=== PATIENT | female | born 1965 | race African-American/Black ===

== ENCOUNTER 2019-07-20 05:31 | Inpatient (IN) | payer MEDICAID, OTHER ==
[2019-07-20] VITALS (20 sets, daily range): BP systolic 133–192; BP diastolic 74–118
[~2019-07-20] VITALS: Ht 162.6 cm; Wt 113.5 kg
[2019-07-20] MEDS ORDERED: ONDANSETRON HCL 4MG/2ML INJ IV STA (05:41)
[2019-07-20] MEDS ORDERED: MORPHINE SULFATE 4 MG/ML CPJ (NOT FOR IM USE) IV STA (05:41)
[2019-07-20] MEDS ORDERED: PROPOFOL 10MG/ML 100ML 100 ML IV ONE (05:45)
[2019-07-20] MEDS ORDERED: KETAMINE HCL 50 MG/ML 10ML IV ONE (05:45)
[2019-07-20] MEDS ORDERED: VECURONIUM BROMIDE 10 MG/VIAL IV ONE (05:45)
[2019-07-20] MEDS ORDERED: KETAMINE HCL 50 MG/ML 10ML ONE (05:53)
[2019-07-20] MEDS ORDERED: FAMOTIDINE 20MG/2ML VIAL IV ONE (06:45)
[2019-07-20] MEDS ORDERED: DEXAMETHASONE 10 MG/ML VIAL IV ONE (06:45)
[2019-07-20] MEDS ORDERED: DIPHENHYDRAMINE 50MG/ML VIAL IV ONE (06:45)
[2019-07-20 07:03] LABS: CHLORIDE 110 mEq/L (98-107)
[2019-07-20 07:06] LABS: BASOPHILS % 1.6 % (0.0-2.0); EOSINOPHILS % 3.4 % (0.0-5.0); HEMATOCRIT. 31.2 % (36.0-48.0); HEMOGLOBIN. 9.9 g/dL (12.0-16.0); LYMPHOCYTES % 13.2 % (20.0-50.0); MEAN CORPUSCULAR HEMOGLOBIN 23.8 pg (28.0-32.0); MEAN CORPUSCULAR VOLUME 75.3 fL (81.0-99.0); MEAN PLATELET VOLUME 8.9 fl (7.4-10.4); MONOCYTES % 8.5 % (2.0-8.0); NEUTROPHILS % 73.3 % (40.0-76.0); PLATELET 556 x1000/uL (130-400); RED BLOOD CELL COUNT 4.15 mill/uL (4.2-5.4); RED CELL DISTRIBUTION WIDTH 15.9 % (11.6-14.6)
[2019-07-20] MEDS ORDERED: PIPERACILLIN/TAZ 3.375G PREMIX 50 ML IV SCH ×2 (10:00→12:05)
[2019-07-20] MEDS ORDERED: LORAZEPAM 2MG/ML CPJ IV PRN (10:00)
[2019-07-20] MEDS ORDERED: IPRATROPIUM/ALBUTEROL 0.5-3(2.5)MG/3ML NEB HHN PRN (10:00)
[2019-07-20 10:45] LABS: BG BASE EXCESS -4.1 mmol/L (-2.0-2.0); BG CARBOXYHEMOGLOBIN 0.2 % (0.5-1.5); BG DEOXYHEMOGLOBIN 0.5 % (0.0-5.0); BG FRACTION INSPIRED OXYGEN 100; BG HCO3 ACT 20.9 mmol/L (22.0-26.0); BG METHEMOGLOBIN 0.3 % (0.0-1.5); BG OXYGEN SATURATION 99.5 % (92.0-98.5); BG PCO2 37.5 mmHg (35.0-45.0); BG PH 7.363 (7.350-7.450); BG PO2 325.3 mmHg (75.0-100.0); BG SAMPLE SITE RIGHT RADIAL; BG TIDAL VOLUME(mL) 500 mL; BG TOTAL HEMOGLOBIN 8.9 g/dL (12.0-18.0); BG VENT MODE VENT - A/C; BG VENT RATE 16 set
[2019-07-20] MEDS ORDERED: PROPOFOL 10MG/ML 100ML 100 ML IV NR (11:48)
[2019-07-20] MEDS ORDERED: DEXT 5%/0.45% NACL KCL 20MEQ/L 1,000 ML IV SCH ×2 (12:15→21:00)
[2019-07-20] MEDS ORDERED: FAMOTIDINE 20MG/2ML VIAL IV SCH (14:00)
[2019-07-20] MEDS: AMLODIPINE 10MG TABLET PO SCH (14:14)
[2019-07-20] MEDS: ENOXAPARIN 40MG/0.4ML SYR SUBCUT SCH (14:15)
[2019-07-20] MEDS: CLONIDINE 0.1MG TABLET PO PRN (15:01)
[2019-07-20 17:06] LABS: BG BASE EXCESS -1.5 mmol/L (-2.0-2.0); BG CARBOXYHEMOGLOBIN 0.2 % (0.5-1.5); BG DEOXYHEMOGLOBIN 1.2 % (0.0-5.0); BG FRACTION INSPIRED OXYGEN 60; BG HCO3 ACT 23.6 mmol/L (22.0-26.0); BG METHEMOGLOBIN 0.2 % (0.0-1.5); BG OXYGEN SATURATION 98.8 % (92.0-98.5); BG OXYHEMOGLOBIN 98.4 % (94.0-97.0); BG PCO2 41.4 mmHg (35.0-45.0); BG PH 7.374 (7.350-7.450); BG PO2 167.2 mmHg (75.0-100.0); BG SAMPLE SITE RIGHT RADIAL; BG TIDAL VOLUME(mL) 500 mL; BG TOTAL HEMOGLOBIN 9.2 g/dL (12.0-18.0); BG VENT MODE VENT - A/C; BG VENT RATE 14 set
[2019-07-20] MEDS ORDERED: DEXT 5%/0.45% NACL 1000ML 1,000 ML IV SCH (17:15)
[2019-07-20] MEDS: PIPERACILLIN/TAZOBACTAM 2.25 G in DEXTROSE 5% WATER 50 ML IV SCH (17:24)
[2019-07-20] MEDS ORDERED: DEXTROSE 50% WATER 50ML SYRINGE IV PRN (17:45)
[2019-07-20] MEDS: BLOOD SUGAR DIAGNOSTIC STRIP TEST SCH ×2 (17:54→20:35)
[2019-07-20] MEDS: METHYLPREDNISOLONE SOD SUCC 40 MG/ML VIAL IV SCH (17:55)
[2019-07-20] MEDS: INSULIN LISPRO 100 UNITS/ML SUBCUT SCH ×2 (18:10→21:00)
[2019-07-20] MEDS: PROPOFOL 10MG/ML 100ML 100 ML IV PRN (19:10)
[2019-07-20 20:14] LABS: CLARITY URINE CLEAR (CLEAR); COLOR URINE YELLOW (YELLOW); KETONES URINE NEGATIVE (NEGATIVE); LEUKOCYTE ESTERASE URINE NEGATIVE (NEGATIVE); NITRITE URINE NEGATIVE (NEGATIVE); OCCULT BLOOD URINE 2+ (NEGATIVE); PH URINE 5.5 (4.5-8.0); PROTEIN URINE 4+ (NEGATIVE); SPECIFIC GRAVITY URINE 1.019 (1.005-1.030); UROBILINOGEN URINE 0.2 E.U./dL (0.2-1.0)
[2019-07-20] MEDS: IPRATROPIUM/ALBUTEROL 0.5-3(2.5)MG/3ML NEB HHN SCH (20:29)
[2019-07-20] MEDS: METOPROLOL TARTRATE 50MG TABLET PO SCH (20:35)
[2019-07-21] VITALS (42 sets, daily range): BP systolic 130–186; BP diastolic 58–159
[2019-07-21] MEDS: IPRATROPIUM/ALBUTEROL 0.5-3(2.5)MG/3ML NEB HHN SCH ×6 (00:10→20:20)
[2019-07-21] MEDS: METHYLPREDNISOLONE SOD SUCC 40 MG/ML VIAL IV SCH ×3 (02:02→16:31)
[2019-07-21] MEDS: PIPERACILLIN/TAZOBACTAM 2.25 G in DEXTROSE 5% WATER 50 ML IV SCH ×3 (02:03→16:31)
[2019-07-21] MEDS: PROPOFOL 10MG/ML 100ML 100 ML IV PRN ×2 (02:17→08:40)
[2019-07-21 06:15] LABS: HEMATOCRIT. 28.6 % (36.0-48.0); HEMOGLOBIN. 8.8 g/dL (12.0-16.0); MEAN CORPUSCULAR HEMOGLOBIN 23.3 pg (28.0-32.0); MEAN CORPUSCULAR VOLUME 75.7 fL (81.0-99.0); MEAN PLATELET VOLUME 9.4 fl (7.4-10.4); PLATELET 411 x1000/uL (130-400); RED BLOOD CELL COUNT 3.77 mill/uL (4.2-5.4); RED CELL DISTRIBUTION WIDTH 15.7 % (11.6-14.6)
[2019-07-21 07:51] LABS: BG BASE EXCESS -2.5 mmol/L (-2.0-2.0); BG CARBOXYHEMOGLOBIN 0.6 % (0.5-1.5); BG DEOXYHEMOGLOBIN 1.1 % (0.0-5.0); BG FRACTION INSPIRED OXYGEN 60; BG HCO3 ACT 22.6 mmol/L (22.0-26.0); BG METHEMOGLOBIN 0.3 % (0.0-1.5); BG OXYGEN SATURATION 98.9 % (92.0-98.5); BG PCO2 40.1 mmHg (35.0-45.0); BG PEEP (cmH2O) 0 cmH2O; BG PH 7.368 (7.350-7.450); BG PO2 151.6 mmHg (75.0-100.0); BG SAMPLE SITE RIGHT RADIAL; BG TIDAL VOLUME(mL) 500 mL; BG TOTAL HEMOGLOBIN 7.3 g/dL (12.0-18.0); BG VENT MODE VENT - A/C; BG VENT RATE 14 set
[2019-07-21] MEDS: BLOOD SUGAR DIAGNOSTIC STRIP TEST SCH ×4 (08:24→21:47)
[2019-07-21] MEDS: AMLODIPINE 10MG TABLET PO SCH (08:25)
[2019-07-21] MEDS: FAMOTIDINE 20MG/2ML VIAL IV SCH (08:25)
[2019-07-21] MEDS: METOPROLOL TARTRATE 50MG TABLET PO SCH ×2 (08:26→22:51)
[2019-07-21] MEDS: ENOXAPARIN 40MG/0.4ML SYR SUBCUT SCH (08:27)
[2019-07-21] MEDS: INSULIN LISPRO 100 UNITS/ML SUBCUT SCH ×4 (08:37→21:00)
[2019-07-21 10:55] LABS: PLATELET ESTIMATE SLIGHTLY INCREASED
[2019-07-21 11:02] LABS: INR 1.1; PARTIAL THROMBOPLASTIN TIME 29.4 sec (23.4-31.0)
[2019-07-21 11:21] LABS: PHOSPHORUS 4.7 mg/dL (2.5-4.9)
[2019-07-21] MEDS ORDERED: LIDOCAINE HCL 1% 20ML VIAL (Pyxis) INJ ONE (12:32)
[2019-07-21] MEDS ORDERED: SODIUM BICARBONATE 4% (2.4MEQ) 5ML VIAL IV ONE (12:32)
[2019-07-21] MEDS ORDERED: RACEPINEPHRINE 2.25% 0.5ML NEB VIAL HHN PRN (16:15)
[2019-07-21] MEDS ORDERED: RACEPINEPHRINE 2.25% 0.5ML NEB VIAL HHN SCH (16:30)
[2019-07-21] MEDS ORDERED: DEXTROSE 50% WATER 50ML SYRINGE IV PRN (19:15)
[2019-07-22] VITALS (36 sets, daily range): BP systolic 138–199; BP diastolic 76–121
[2019-07-22] MEDS: IPRATROPIUM/ALBUTEROL 0.5-3(2.5)MG/3ML NEB HHN SCH ×7 (00:20→22:00)
[2019-07-22] MEDS: PIPERACILLIN/TAZOBACTAM 2.25 G in DEXTROSE 5% WATER 50 ML IV SCH ×3 (01:05→17:24)
[2019-07-22] MEDS: METHYLPREDNISOLONE SOD SUCC 40 MG/ML VIAL IV SCH ×3 (01:05→17:21)
[2019-07-22] MEDS: CLONIDINE 0.1MG TABLET PO PRN ×3 (01:06→17:42)
[2019-07-22 06:09] LABS: HEMATOCRIT 29.2 % (36.0-48.0); HEMOGLOBIN 9.1 g/dL (12.0-16.0); MEAN CORPUSCULAR HEMOGLOBIN 23.5 pg (28.0-32.0); MEAN CORPUSCULAR VOLUME 75.5 fL (81.0-99.0); PLATELET 524 x1000/uL (130-400); RED BLOOD CELL COUNT 3.87 mill/uL (4.2-5.4); RED CELL DISTRIBUTION WIDTH 15.8 % (11.6-14.6)
[2019-07-22 06:55] LABS: CHLORIDE 112 mEq/L (98-107)
[2019-07-22] MEDS: BLOOD SUGAR DIAGNOSTIC STRIP TEST SCH ×4 (07:37→21:03)
[2019-07-22] MEDS: METOPROLOL TARTRATE 50MG TABLET PO SCH ×2 (07:51→21:03)
[2019-07-22] MEDS: FOLIC ACID/VITAMIN B COMP W-C TABLET PO SCH (07:51)
[2019-07-22] MEDS: AMLODIPINE 10MG TABLET PO SCH (07:51)
[2019-07-22] MEDS: FAMOTIDINE 20MG/2ML VIAL IV SCH (07:52)
[2019-07-22] MEDS: INSULIN LISPRO 100 UNITS/ML SUBCUT SCH ×4 (07:53→21:00)
[2019-07-22 08:06] LABS: BG BASE EXCESS -2.1 mmol/L (-2.0-2.0); BG CARBOXYHEMOGLOBIN 0.8 % (0.5-1.5); BG DEOXYHEMOGLOBIN 1.1 % (0.0-5.0); BG FRACTION INSPIRED OXYGEN 28; BG HCO3 ACT 21.6 mmol/L (22.0-26.0); BG METHEMOGLOBIN 0.3 % (0.0-1.5); BG OXYGEN SATURATION 98.9 % (92.0-98.5); BG OXYHEMOGLOBIN 97.8 % (94.0-97.0); BG PCO2 32.7 mmHg (35.0-45.0); BG PH 7.437 (7.350-7.450); BG PO2 153.3 mmHg (75.0-100.0); BG SAMPLE SITE RIGHT RADIAL; BG TOTAL HEMOGLOBIN 9.5 g/dL (12.0-18.0); BG VENT MODE NASAL CANNULA
[2019-07-22] MEDS: ENOXAPARIN 40MG/0.4ML SYR SUBCUT SCH (09:00)
[2019-07-22 15:14] LABS: HEPATITIS B SURFACE AB < 3.1 mIU/mL
[2019-07-22 15:25] LABS: HEPATITIS B SURFACE ANTIGEN NEGATIVE
[2019-07-22] MEDS ORDERED: FUROSEMIDE 100MG/10ML VIAL IVP NR (16:00)
[2019-07-22] MEDS: FUROSEMIDE 100MG/10ML VIAL IVP SCH (16:19)
[2019-07-22 17:11] LABS: BG BASE EXCESS -3.9 mmol/L (-2.0-2.0); BG CARBOXYHEMOGLOBIN 0.4 % (0.5-1.5); BG DEOXYHEMOGLOBIN 10.7 % (0.0-5.0); BG FRACTION INSPIRED OXYGEN 21; BG HCO3 ACT 21.1 mmol/L (22.0-26.0); BG METHEMOGLOBIN 0.3 % (0.0-1.5); BG OXYGEN SATURATION 89.2 % (92.0-98.5); BG OXYHEMOGLOBIN 88.6 % (94.0-97.0); BG PCO2 37.7 mmHg (35.0-45.0); BG PH 7.365 (7.350-7.450); BG PO2 60.1 mmHg (75.0-100.0); BG SAMPLE SITE LEFT RADIAL; BG TOTAL HEMOGLOBIN 9.4 g/dL (12.0-18.0); BG VENT MODE ROOM AIR
[2019-07-22] MEDS: CLONIDINE 0.1MG TABLET PO SCH ×2 (18:57→21:03)
[2019-07-22] MEDS: INSULIN GLARGINE UD 100 UNITS/ML SYR SUBCUT SCH (21:00)
[2019-07-22] MEDS ORDERED: METOPROLOL TARTRATE 50MG TABLET PO SCH (21:25)
[2019-07-22] MEDS ORDERED: CLONIDINE 0.1MG TABLET PO SCH (21:30)
[2019-07-23] VITALS (55 sets, daily range): BP systolic 113–204; BP diastolic 59–117
[2019-07-23] MEDS ORDERED: AMLODIPINE 5MG TABLET PO SCH
[2019-07-23] MEDS: PIPERACILLIN/TAZOBACTAM 2.25 G in DEXTROSE 5% WATER 50 ML IV SCH ×3 (01:14→17:53)
[2019-07-23] MEDS: METHYLPREDNISOLONE SOD SUCC 40 MG/ML VIAL IV SCH ×3 (01:14→20:11)
[2019-07-23] MEDS: NICARDIPINE 50 MG in SODIUM CHLORIDE 0.9% 250 ML IV PRN ×2 (01:15→23:22)
[2019-07-23] MEDS: IPRATROPIUM/ALBUTEROL 0.5-3(2.5)MG/3ML NEB HHN SCH ×5 (01:30→21:24)
[2019-07-23] MEDS: CLONIDINE 0.1MG TABLET PO SCH ×3 (06:00→20:11)
[2019-07-23 06:24] LABS: HEMOGLOBIN. 8.5 g/dL (12.0-16.0); MEAN CORPUSCULAR HEMOGLOBIN 23.6 pg (28.0-32.0); MEAN CORPUSCULAR VOLUME 75.3 fL (81.0-99.0); PLATELET 417 x1000/uL (130-400); RED BLOOD CELL COUNT 3.58 mill/uL (4.2-5.4); RED CELL DISTRIBUTION WIDTH 15.6 % (11.6-14.6)
[2019-07-23] MEDS: FUROSEMIDE 100MG/10ML VIAL IVP SCH ×2 (06:38→16:59)
[2019-07-23 07:29] LABS: CHLORIDE 106 mEq/L (98-107)
[2019-07-23 07:37] LABS: PHOSPHORUS 4.1 mg/dL (2.5-4.9)
[2019-07-23] MEDS: ENOXAPARIN 40MG/0.4ML SYR SUBCUT SCH (07:48)
[2019-07-23] MEDS: BLOOD SUGAR DIAGNOSTIC STRIP TEST SCH ×4 (07:55→20:15)
[2019-07-23] MEDS: FOLIC ACID/VITAMIN B COMP W-C TABLET PO SCH (08:31)
[2019-07-23] MEDS: FAMOTIDINE 20MG/2ML VIAL IV SCH (08:31)
[2019-07-23] MEDS: METOPROLOL TARTRATE 50MG TABLET PO SCH ×2 (08:32→20:10)
[2019-07-23] MEDS: INSULIN LISPRO 100 UNITS/ML SUBCUT SCH ×4 (08:32→20:13)
[2019-07-23] MEDS: AMLODIPINE 10MG TABLET PO SCH (08:33)
[2019-07-23 08:49] LABS: PLATELET ESTIMATE SLIGHTLY INCREASED
[2019-07-23] MEDS: INSULIN GLARGINE UD 100 UNITS/ML SYR SUBCUT SCH ×2 (09:44→21:02)
[2019-07-23] MEDS ORDERED: CLONIDINE 0.1MG TABLET PO NR (14:45)
[2019-07-23 14:57] LABS: HEPATITIS B SURFACE ANTIGEN NEGATIVE
[2019-07-23 15:26] LABS: HEPATITIS A AB IGM NEGATIVE (NEGATIVE)
[2019-07-23] MEDS ORDERED: INSULIN GLARGINE UD 100 UNITS/ML SYR SUBCUT NR (16:00)
[2019-07-23] MEDS: EPOETIN ALFA 10000UNITS/ML VIAL SUBCUT SCH (20:11)
[2019-07-24] VITALS (24 sets, daily range): BP systolic 123–189; BP diastolic 42–106
[2019-07-24] MEDS: IPRATROPIUM/ALBUTEROL 0.5-3(2.5)MG/3ML NEB HHN SCH ×5 (00:28→21:32)
[2019-07-24] MEDS: PIPERACILLIN/TAZOBACTAM 2.25 G in DEXTROSE 5% WATER 50 ML IV SCH ×3 (02:48→23:24)
[2019-07-24 05:54] LABS: HEMATOCRIT. 27.7 % (36.0-48.0); HEMOGLOBIN. 8.6 g/dL (12.0-16.0); MEAN CORPUSCULAR HEMOGLOBIN 23.4 pg (28.0-32.0); MEAN CORPUSCULAR VOLUME 75.4 fL (81.0-99.0); MEAN PLATELET VOLUME 9.2 fl (7.4-10.4); PLATELET 430 x1000/uL (130-400); RED BLOOD CELL COUNT 3.68 mill/uL (4.2-5.4)
[2019-07-24] MEDS: NICARDIPINE 50 MG in SODIUM CHLORIDE 0.9% 250 ML IV PRN (06:14)
[2019-07-24 06:25] LABS: PHOSPHORUS 3.5 mg/dL (2.5-4.9)
[2019-07-24] MEDS: FUROSEMIDE 100MG/10ML VIAL IVP SCH (07:15)
[2019-07-24 08:15] LABS: PLATELET ESTIMATE INCREASED
[2019-07-24] MEDS: BLOOD SUGAR DIAGNOSTIC STRIP TEST SCH ×4 (08:17→21:00)
[2019-07-24] MEDS: FAMOTIDINE 20MG/2ML VIAL IV SCH (08:18)
[2019-07-24] MEDS: METHYLPREDNISOLONE SOD SUCC 40 MG/ML VIAL IV SCH (08:18)
[2019-07-24] MEDS: CLONIDINE 0.1MG TABLET PO SCH ×2 (08:19→12:42)
[2019-07-24] MEDS: AMLODIPINE 10MG TABLET PO SCH (08:19)
[2019-07-24] MEDS: FOLIC ACID/VITAMIN B COMP W-C TABLET PO SCH (08:19)
[2019-07-24] MEDS: METOPROLOL TARTRATE 50MG TABLET PO SCH ×2 (08:19→22:05)
[2019-07-24] MEDS: INSULIN LISPRO 100 UNITS/ML SUBCUT SCH ×4 (08:20→22:16)
[2019-07-24] MEDS: ENOXAPARIN 40MG/0.4ML SYR SUBCUT SCH (09:00)
[2019-07-24] MEDS ORDERED: METOPROLOL TARTRATE 25MG TABLET PO NR (10:30)
[2019-07-24] MEDS: INSULIN GLARGINE UD 100 UNITS/ML SYR SUBCUT SCH ×2 (10:33→22:19)
[2019-07-24] MEDS: CLONIDINE 0.2MG TABLET PO SCH ×2 (13:54→23:35)
[2019-07-24] MEDS: NIFEDIPINE XL 60MG TAB PO SCH (21:17)
[2019-07-25] VITALS: BP 193/114
[2019-07-25] MEDS ORDERED: NITROPRUSSIDE 50 MG in SODIUM CHLORIDE 0.9% 248 ML IV PRN (00:15)
[2019-07-25] MEDS: IPRATROPIUM/ALBUTEROL 0.5-3(2.5)MG/3ML NEB HHN SCH ×6 (01:19→19:45)
[2019-07-25] MEDS: NITROGLYCERIN OINT 1GM/INCH UDPKT TD SCH ×4 (02:43→18:27)
[2019-07-25 04:00] VITALS: BP 181/100
[2019-07-25] MEDS: CLONIDINE 0.2MG TABLET PO SCH ×3 (06:07→22:23)
[2019-07-25] MEDS: PIPERACILLIN/TAZOBACTAM 2.25 G in DEXTROSE 5% WATER 50 ML IV SCH ×2 (06:07→12:02)
[2019-07-25 06:22] LABS: PHOSPHORUS 3.6 mg/dL (2.5-4.9)
[2019-07-25 06:26] LABS: BASOPHILS % 0.5 % (0.0-2.0); EOSINOPHILS % 2.4 % (0.0-5.0); HEMATOCRIT. 27.5 % (36.0-48.0); HEMOGLOBIN. 8.7 g/dL (12.0-16.0); LYMPHOCYTES % 16.9 % (20.0-50.0); MEAN CORPUSCULAR HEMOGLOBIN 23.5 pg (28.0-32.0); MEAN CORPUSCULAR VOLUME 74.1 fL (81.0-99.0); MONOCYTES % 11.8 % (2.0-8.0); NEUTROPHILS % 68.4 % (40.0-76.0); PLATELET 417 x1000/uL (130-400); RED BLOOD CELL COUNT 3.71 mill/uL (4.2-5.4); RED CELL DISTRIBUTION WIDTH 15.8 % (11.6-14.6)
[2019-07-25] MEDS: FUROSEMIDE 40MG/4ML VIAL IVP SCH ×2 (07:15→18:27)
[2019-07-25] MEDS: BLOOD SUGAR DIAGNOSTIC STRIP TEST SCH ×4 (07:20→20:15)
[2019-07-25] MEDS: INSULIN LISPRO 100 UNITS/ML SUBCUT SCH ×4 (07:50→20:52)
[2019-07-25 08:00] VITALS: BP 121/68
[2019-07-25] MEDS: FOLIC ACID/VITAMIN B COMP W-C TABLET PO SCH (09:27)
[2019-07-25] MEDS: ENOXAPARIN 40MG/0.4ML SYR SUBCUT SCH (09:27)
[2019-07-25] MEDS: FAMOTIDINE 20MG/2ML VIAL IV SCH (09:27)
[2019-07-25] MEDS: LOSARTAN POTASSIUM 25 MG TABLET PO SCH (09:29)
[2019-07-25] MEDS: NIFEDIPINE XL 60MG TAB PO SCH ×2 (09:29→20:49)
[2019-07-25] MEDS: METOPROLOL TARTRATE 50MG TABLET PO SCH ×2 (09:29→20:50)
[2019-07-25 12:00] VITALS: BP 126/73
[2019-07-25] MEDS: INSULIN GLARGINE UD 100 UNITS/ML SYR SUBCUT SCH ×2 (12:15→22:17)
[2019-07-25 13:10] LABS: HIV SCREEN 4G Non Reactive (Non Reactive)
[2019-07-25 20:00] VITALS: BP 182/99
[2019-07-26] VITALS: BP 193/109
[2019-07-26] MEDS: NITROGLYCERIN OINT 1GM/INCH UDPKT TD SCH ×4 (00:01→17:19)
[2019-07-26] MEDS: IPRATROPIUM/ALBUTEROL 0.5-3(2.5)MG/3ML NEB HHN SCH ×6 (00:11→21:27)
[2019-07-26 04:00] VITALS: BP 188/105
[2019-07-26] MEDS: CLONIDINE 0.2MG TABLET PO SCH ×3 (05:26→22:35)
[2019-07-26 06:31] LABS: BASOPHILS % 0.9 % (0.0-2.0); EOSINOPHILS % 7.5 % (0.0-5.0); HEMATOCRIT. 29.7 % (36.0-48.0); HEMOGLOBIN. 9.4 g/dL (12.0-16.0); LYMPHOCYTES % 15.6 % (20.0-50.0); MEAN CORPUSCULAR HEMOGLOBIN 23.6 pg (28.0-32.0); MEAN CORPUSCULAR VOLUME 74.3 fL (81.0-99.0); MEAN PLATELET VOLUME 8.9 fl (7.4-10.4); MONOCYTES % 13.7 % (2.0-8.0); NEUTROPHILS % 62.3 % (40.0-76.0); PLATELET 465 x1000/uL (130-400); RED BLOOD CELL COUNT 4.01 mill/uL (4.2-5.4); RED CELL DISTRIBUTION WIDTH 15.8 % (11.6-14.6)
[2019-07-26] MEDS: INSULIN LISPRO 100 UNITS/ML SUBCUT SCH ×4 (06:34→21:11)
[2019-07-26] MEDS: BLOOD SUGAR DIAGNOSTIC STRIP TEST SCH ×4 (06:34→21:11)
[2019-07-26] MEDS: FUROSEMIDE 40MG/4ML VIAL IVP SCH ×2 (06:36→17:18)
[2019-07-26 08:00] VITALS: BP 132/78
[2019-07-26] MEDS: FOLIC ACID/VITAMIN B COMP W-C TABLET PO SCH (08:07)
[2019-07-26] MEDS: LOSARTAN POTASSIUM 25 MG TABLET PO SCH (08:07)
[2019-07-26] MEDS: FAMOTIDINE 20MG TABLET PO SCH (08:07)
[2019-07-26] MEDS: NIFEDIPINE XL 60MG TAB PO SCH ×2 (08:07→20:52)
[2019-07-26] MEDS: METOPROLOL TARTRATE 50MG TABLET PO SCH ×2 (08:08→20:53)
[2019-07-26] MEDS: ENOXAPARIN 40MG/0.4ML SYR SUBCUT SCH (08:09)
[2019-07-26] MEDS: INSULIN GLARGINE UD 100 UNITS/ML SYR SUBCUT SCH ×2 (10:17→22:35)
[2019-07-26 12:00] VITALS: BP 145/84
[2019-07-26] MEDS: CLONIDINE 0.1MG TABLET PO PRN ×2 (14:16→14:18)
[2019-07-26 16:00] VITALS: BP 150/77
[2019-07-26] MEDS: METOLAZONE 2.5MG TABLET PO SCH (17:18)
[2019-07-26 18:13] LABS: HEMATOCRIT 28.4 % (36.0-48.0); HEMOGLOBIN 9.1 g/dL (12.0-16.0); MEAN CORPUSCULAR HEMOGLOBIN 23.7 pg (28.0-32.0); MEAN CORPUSCULAR VOLUME 74.2 fL (81.0-99.0); PLATELET 455 x1000/uL (130-400); RED BLOOD CELL COUNT 3.83 mill/uL (4.2-5.4); RED CELL DISTRIBUTION WIDTH 15.8 % (11.6-14.6)
[2019-07-26 18:17] LABS: CHLORIDE 105 mEq/L (98-107)
[2019-07-26 20:00] VITALS: BP 146/85
[2019-07-26] MEDS: EPOETIN ALFA 10000UNITS/ML VIAL SUBCUT SCH (20:54)
[2019-07-27] VITALS (16 sets, daily range): BP systolic 126–194; BP diastolic 71–106
[2019-07-27] MEDS: IPRATROPIUM/ALBUTEROL 0.5-3(2.5)MG/3ML NEB HHN SCH ×4 (00:15→16:23)
[2019-07-27] MEDS: NITROGLYCERIN OINT 1GM/INCH UDPKT TD SCH ×4 (00:25→17:19)
[2019-07-27] MEDS: CLONIDINE 0.1MG TABLET PO PRN (04:24)
[2019-07-27] MEDS: CLONIDINE 0.2MG TABLET PO SCH ×2 (05:38→13:12)
[2019-07-27] MEDS: FUROSEMIDE 40MG/4ML VIAL IVP SCH ×2 (06:33→17:19)
[2019-07-27] MEDS: BLOOD SUGAR DIAGNOSTIC STRIP TEST SCH ×3 (06:43→17:19)
[2019-07-27] MEDS: INSULIN LISPRO 100 UNITS/ML SUBCUT SCH ×3 (06:43→17:28)
[2019-07-27] MEDS ORDERED: CEFAZOLIN 1000MG PREMIX 50 ML IV SCH (07:00)
[2019-07-27] MEDS ORDERED: CEFAZOLIN 1000MG PREMIX 50 ML IV ONE (07:33)
[2019-07-27] MEDS ORDERED: FENTANYL CITRATE/PF 50MCG/ML 2ML VIAL ONE (07:33)
[2019-07-27] MEDS ORDERED: LIDOCAINE HCL 1% 20ML VIAL (Pyxis) INJ ONE (07:42)
[2019-07-27] MEDS ORDERED: SODIUM BICARBONATE 4% (2.4MEQ) 5ML VIAL IV ONE (07:42)
[2019-07-27] MEDS ORDERED: FENTANYL CITRATE/PF 50MCG/ML 2ML VIAL IV ONE (08:30)
[2019-07-27] MEDS: ENOXAPARIN 40MG/0.4ML SYR SUBCUT SCH (09:00)
[2019-07-27] MEDS: FOLIC ACID/VITAMIN B COMP W-C TABLET PO SCH (09:19)
[2019-07-27] MEDS: NIFEDIPINE XL 60MG TAB PO SCH (09:20)
[2019-07-27] MEDS: LOSARTAN POTASSIUM 25 MG TABLET PO SCH (09:20)
[2019-07-27] MEDS: METOPROLOL TARTRATE 50MG TABLET PO SCH (09:20)
[2019-07-27] MEDS: FAMOTIDINE 20MG TABLET PO SCH (09:20)
[2019-07-27] MEDS: METOLAZONE 2.5MG TABLET PO SCH ×2 (09:20→17:18)
[2019-07-27] MEDS: ACETAMINOPHEN 325MG TABLET PO PRN ×2 (10:15→15:15)
[2019-07-27] MEDS: INSULIN GLARGINE UD 100 UNITS/ML SYR SUBCUT SCH (11:33)
[2019-07-27] MEDS ORDERED: LOSA25TA3 MT (12:21)
[2019-07-27] MEDS ORDERED: HYDR-4001 MT (12:21)
[2019-07-27] MEDS ORDERED: FOLI1TAB63 MT (12:21)
[2019-07-27] MEDS ORDERED: NIFE20CA PO (12:21)
[2019-07-27] MEDS ORDERED: FURO-151 MT (12:21)
[2019-07-27] MEDS ORDERED: FAMO-135 PO (12:21)
[2019-07-27] MEDS ORDERED: METO2.5T14 PO (12:21)
[2019-07-27] MEDS ORDERED: METO-539 MT (12:21)
[2019-07-27] MEDS ORDERED: CLON0.2T MT (12:21)
[2019-07-27] MEDS ORDERED: FURO80TA87 MT (15:50)
== END 2019-07-27 18:14 | disposition home or self-care (01) | DRG 133 ==
LOC: ER 05:31 → CVICU 06:11 → EDBEDREQSVC 06:13 → EDBEDREQTM 06:13 → EDBEDREQ 06:13 → ENRESERV 11:58 → 6EST 07-24 14:48
PROVIDERS: ADMIT Ophthalmology; ATTEND Ophthalmology
PROC: 5A1945Z Respiratory Ventilation, 24-96 Consecutive Hours (ICD-10-PCS; principal; 2019-07-20)
PROC: 0BH17EZ Insertion of Endotracheal Airway into Trachea, Via Natural or Artificial Opening (ICD-10-PCS; 2019-07-20)
PROC: 02HV33Z Insertion of Infusion Device into Superior Vena Cava, Percutaneous Approach (ICD-10-PCS; 2019-07-21)
PROC: 5A1D70Z Performance of Urinary Filtration, Intermittent, Less than 6 Hours Per Day (ICD-10-PCS; 2019-07-21)
PROC: 02H633Z Insertion of Infusion Device into Right Atrium, Percutaneous Approach (ICD-10-PCS; 2019-07-22)
PROC: B548ZZA Ultrasonography of Superior Vena Cava, Guidance (ICD-10-PCS; 2019-07-22)
PROC: 02PYX3Z Removal of Infusion Device from Great Vessel, External Approach (ICD-10-PCS; 2019-07-22)
PROC: 5A1D70Z Performance of Urinary Filtration, Intermittent, Less than 6 Hours Per Day (ICD-10-PCS; 2019-07-22)
PROC: 5A1D70Z Performance of Urinary Filtration, Intermittent, Less than 6 Hours Per Day (ICD-10-PCS; 2019-07-23)
PROC: 5A1D70Z Performance of Urinary Filtration, Intermittent, Less than 6 Hours Per Day (ICD-10-PCS; 2019-07-25)
PROC: 0JH63XZ Insertion of Tunneled Vascular Access Device into Chest Subcutaneous Tissue and Fascia, Percutaneous Approach (ICD-10-PCS; 2019-07-27)
PROC: 02HV33Z Insertion of Infusion Device into Superior Vena Cava, Percutaneous Approach (ICD-10-PCS; 2019-07-27)
PROC: B5181ZA Fluoroscopy of Superior Vena Cava using Low Osmolar Contrast, Guidance (ICD-10-PCS; 2019-07-27)
DX: J96.01 Acute respiratory failure with hypoxia (principal); J18.9 Pneumonia, unspecified organism; I12.0 Hypertensive chronic kidney disease with stage 5 chronic kidney disease or end stage renal disease; E11.22 Type 2 diabetes mellitus with diabetic chronic kidney disease; N18.6 End stage renal disease; E66.01 Morbid (severe) obesity due to excess calories; T78.3XXA Angioneurotic edema, initial encounter; E86.9 Volume depletion, unspecified; E78.5 Hyperlipidemia, unspecified; E87.5 Hyperkalemia; E87.70 Fluid overload, unspecified; I16.0 Hypertensive urgency; D47.3 Essential (hemorrhagic) thrombocythemia; Z20.828 Contact with and (suspected) exposure to other viral communicable diseases; D64.9 Anemia, unspecified; T46.5X5A Adverse effect of other antihypertensive drugs, initial encounter; Z79.4 Long term (current) use of insulin; Z79.899 Other long term (current) drug therapy; Z87.441 Personal history of nephrotic syndrome; Z88.8 Allergy status to other drugs, medicaments and biological substances; Z91.19 Patient's noncompliance with other medical treatment and regimen; Z68.42 Body mass index [BMI] 45.0-49.9, adult; Y92.89 Other specified places as the place of occurrence of the external cause
CPT/HCPCS: 36415; 36558; 36589; 36600; 70490; 71045; 71250; 76770; 76937; 77001; 80048; 80053; 80061; 81003; 82375; 82570; 82805; 82962; 83036; 83735; 83880; 84100; 84156; 84478; 84484; 85025; 85027; 86705; 86706; 86709; 86803; 87070; 87340; 87389; 87635; 93005; 96374; 97116; 97162; 99152; 99153; 99291; C1750; C1752; C1769; J0690; J0885; J1100; J1200; J1642; J1650; J1815; J1940; J2270; J2405; J2543; J2704; J2920; J3010; J3490; J7050; J7060; G0500

== ENCOUNTER 2019-09-11 23:29 | Emergency (ER) | payer MEDICAID ==
[~2019-09-11] VITALS: Ht 165.1 cm; Wt 95.0 kg
[~2019-09-11 23:29] MED LIST: CLON0.2T MT; FAMO-135 PO; FOLI1TAB63 MT; FURO80TA87 MT; HYDR-4001 MT; LOSA25TA3 MT; METO-539 MT; METO2.5T14 PO; NIFE20CA PO
[2019-09-12] MEDS ORDERED: HYDROCODONE/ACETAMINOPHEN 5/325MG TABLET PO ONE (00:45)
[2019-09-12 01:09] LABS: BASOPHILS % 0.6 % (0.0-2.0); EOSINOPHILS % 3.4 % (0.0-5.0); HEMATOCRIT. 39.4 % (36.0-48.0); HEMOGLOBIN. 12.7 g/dL (12.0-16.0); LYMPHOCYTES % 15.6 % (20.0-50.0); MEAN CORPUSCULAR HEMOGLOBIN 25.4 pg (28.0-32.0); MEAN CORPUSCULAR VOLUME 78.6 fL (81.0-99.0); MEAN PLATELET VOLUME 9.6 fl (7.4-10.4); MONOCYTES % 10.8 % (2.0-8.0); NEUTROPHILS % 69.6 % (40.0-76.0); PLATELET 293 x1000/uL (130-400); RED BLOOD CELL COUNT 5.01 mill/uL (4.2-5.4); RED CELL DISTRIBUTION WIDTH 22.9 % (11.6-14.6)
[2019-09-12 01:15] LABS: CHLORIDE 101 mEq/L (98-107)
[2019-09-12 01:17] LABS: INR 1.1
[2019-09-12 01:44] LABS: CLARITY URINE CLEAR (CLEAR); COLOR URINE YELLOW (YELLOW); KETONES URINE NEGATIVE (NEGATIVE); LEUKOCYTE ESTERASE URINE NEGATIVE (NEGATIVE); NITRITE URINE NEGATIVE (NEGATIVE); OCCULT BLOOD URINE 1+ (NEGATIVE); PH URINE 6.5 (4.5-8.0); PROTEIN URINE 4+ (NEGATIVE); SPECIFIC GRAVITY URINE 1.025 (1.005-1.030); UROBILINOGEN URINE 0.2 E.U./dL (0.2-1.0)
[2019-09-12] MEDS ORDERED: INSULIN REGULAR (HUMULIN R) 300UNITS/3ML SUBCUT NR (02:00)
[2019-09-12] MEDS ORDERED: TRAMADOL 50MG TABLET PO ONE (03:15)
[2019-09-12 04:01] LABS: PLATELET ESTIMATE NORMAL
[2019-09-12 09:11] VITALS: BP 135/72
== END 2019-09-12 09:12 | disposition home or self-care (01) ==
LOC: ER 23:29
DX: R60.9 Edema, unspecified (principal); E11.65 Type 2 diabetes mellitus with hyperglycemia; E11.22 Type 2 diabetes mellitus with diabetic chronic kidney disease; I12.0 Hypertensive chronic kidney disease with stage 5 chronic kidney disease or end stage renal disease; N18.6 End stage renal disease; Z79.899 Other long term (current) drug therapy; Z98.890 Other specified postprocedural states
CPT/HCPCS: 36415; 71045; 80053; 81003; 81025; 84484; 85025; 85610; 93005; 93970; 96372; 99285; J1815

== ENCOUNTER 2019-10-01 02:14 | Inpatient (IN) | payer MEDICAID ==
[~2019-10-01] VITALS: Ht 165.1 cm; Wt 83.5 kg
[2019-10-01] MEDS ORDERED: LABETALOL 5MG/ML SYR 20 MG/4 ML SYRINGE IV ONE (03:00)
[2019-10-01 03:35] LABS: INR 1.1; PARTIAL THROMBOPLASTIN TIME 25.8 sec (23.4-31.0); PROTHROMBIN TIME 11.4 sec (9.6-11.0)
[2019-10-01 03:56] LABS: EOSINOPHILS % 3.9 % (0.0-5.0); HEMATOCRIT. 44.2 % (36.0-48.0); HEMOGLOBIN. 14.1 g/dL (12.0-16.0); LYMPHOCYTES % 27.4 % (20.0-50.0); MEAN CORPUSCULAR HEMOGLOBIN 24.7 pg (28.0-32.0); MEAN CORPUSCULAR VOLUME 77.4 fL (81.0-99.0); MEAN PLATELET VOLUME 10.6 fl (7.4-10.4); MONOCYTES % 13.6 % (2.0-8.0); NEUTROPHILS % 52.1 % (40.0-76.0); PLATELET 219 x1000/uL (130-400); RED BLOOD CELL COUNT 5.72 mill/uL (4.2-5.4); RED CELL DISTRIBUTION WIDTH 20.7 % (11.6-14.6)
[2019-10-01 04:21] LABS: BG BASE EXCESS -0.4 mmol/L (-2.0-2.0); BG CARBOXYHEMOGLOBIN 0.8 % (0.5-1.5); BG DEOXYHEMOGLOBIN 3.6 % (0.0-5.0); BG FRACTION INSPIRED OXYGEN 21; BG HCO3 ACT 24.4 mmol/L (22.0-26.0); BG METHEMOGLOBIN 0.3 % (0.0-1.5); BG OXYGEN SATURATION 96.4 % (92.0-98.5); BG OXYHEMOGLOBIN 95.3 % (94.0-97.0); BG PCO2 40.8 mmHg (35.0-45.0); BG PH 7.395 (7.350-7.450); BG PO2 82.7 mmHg (75.0-100.0); BG SAMPLE SITE RIGHT RADIAL; BG TOTAL HEMOGLOBIN 13.4 g/dL (12.0-18.0); BG VENT MODE ROOM AIR
[2019-10-01 05:38] LABS: CHLORIDE 101 mEq/L (98-107)
[2019-10-01 05:46] LABS: ETHANOL BLOOD < 10 mg/dL
[2019-10-01 06:04] LABS: *BARBITURATES SCREEN URINE NEGATIVE (NEGATIVE)
[2019-10-01 06:05] LABS: *BENZODIAZEPINES SCREEN URINE NEGATIVE (NEGATIVE); *COCAINE SCREEN URINE NEGATIVE (NEGATIVE); METHADONE URINE SCREEN NEGATIVE (NEGATIVE); OPIATES URINE SCREEN NEGATIVE (NEGATIVE); PHENCYCLIDINE URINE SCREEN NEGATIVE (NEGATIVE)
[2019-10-01 06:06] LABS: CANNABINOID URINE SCREEN NEGATIVE (NEGATIVE)
[2019-10-01 06:07] LABS: *AMPHETAMINES SCREEN URINE NEGATIVE (NEGATIVE)
[2019-10-01] MEDS ORDERED: DEXTROSE 50% WATER 50ML SYRINGE IV PRN (11:00)
[2019-10-01] MEDS ORDERED: GUAIFENESIN 200MG/10ML SUGAR FREE UDC PO PRN (11:15)
[2019-10-01] MEDS ORDERED: ONDANSETRON HCL 4MG/2ML INJ IV PRN (11:15)
[2019-10-01] MEDS ORDERED: MORPHINE SULFATE 2 MG/ML CPJ (NOT FOR IM USE) IV PRN (11:15)
[2019-10-01] MEDS ORDERED: IPRATROPIUM/ALBUTEROL 0.5-3(2.5)MG/3ML NEB NEB PRN (11:15)
[2019-10-01] MEDS ORDERED: DIPHENHYDRAMINE 50MG/ML VIAL IV PRN (11:15)
[2019-10-01] MEDS ORDERED: ACETAMINOPHEN 325MG TABLET PO PRN (11:15)
[2019-10-01] MEDS ORDERED: MAGNESIUM/ALUMINUM HYDROXIDE/SIMETHICONE 30ML UDC PO PRN (11:15)
[2019-10-01] MEDS ORDERED: LORAZEPAM 0.5MG TABLET PO PRN (11:15)
[2019-10-01] MEDS ORDERED: DOCUSATE SODIUM 100MG CAPSULE PO PRN (11:15)
[2019-10-01] MEDS ORDERED: HYDROCODONE/ACETAMINOPHEN 5/325MG TABLET PO PRN (11:15)
[2019-10-01] MEDS ORDERED: ACETAMINOPHEN 650MG SUPP PR PRN (11:15)
[2019-10-01] MEDS ORDERED: METOLAZONE 2.5MG TABLET PO SCH (12:00)
[2019-10-01] MEDS ORDERED: INSULIN GLARGINE UD 100 UNITS/ML SYR SUBCUT NR (12:00)
[2019-10-01 13:00] VITALS: BP 150/82
[2019-10-01] MEDS: BLOOD SUGAR DIAGNOSTIC STRIP TEST SCH ×3 (13:52→21:45)
[2019-10-01] MEDS: INSULIN LISPRO (HIGH DOSE) 100 UNITS/ML SUBCUT SCH ×3 (13:54→21:44)
[2019-10-01] MEDS: LOSARTAN POTASSIUM 50 MG TABLET PO SCH (14:15)
[2019-10-01] MEDS: NIFEDIPINE XL 90MG TAB PO SCH (14:15)
[2019-10-01 15:44] LABS: CLARITY URINE CLEAR (CLEAR); COLOR URINE YELLOW (YELLOW); KETONES URINE NEGATIVE (NEGATIVE); LEUKOCYTE ESTERASE URINE NEGATIVE (NEGATIVE); NITRITE URINE NEGATIVE (NEGATIVE); OCCULT BLOOD URINE 1+ (NEGATIVE); PROTEIN URINE 4+ (NEGATIVE); SPECIFIC GRAVITY URINE 1.025 (1.005-1.030); UROBILINOGEN URINE 0.2 E.U./dL (0.2-1.0)
[2019-10-01 16:00] VITALS: BP 164/97
[2019-10-01] MEDS: CEFTRIAXONE 1 G PREMIX 50 ML IV SCH (17:41)
[2019-10-01 17:45] LABS: CREATINE KINASE MB FRACTION 4.6 ng/mL (0.5-3.6)
[2019-10-01] MEDS: CLONIDINE 0.1MG TABLET PO PRN (18:19)
[2019-10-01 20:00] VITALS: BP 177/105
[2019-10-01 21:00] VITALS: BP 145/68
[2019-10-01] MEDS ORDERED: AMLODIPINE 5MG TABLET PO SCH (21:00)
[2019-10-01] MEDS: METOPROLOL TARTRATE 25MG TABLET PO SCH (21:42)
[2019-10-01] MEDS: HEPARIN 5000 UNITS/ML VIAL SUBCUT SCH (21:43)
[2019-10-01] MEDS: MINOXIDIL 2.5MG TABLET PO SCH (21:43)
[2019-10-01] MEDS: INSULIN GLARGINE UD 100 UNITS/ML SYR SUBCUT SCH (21:44)
[2019-10-01] MEDS ORDERED: INSULIN GLARGINE UD 100 UNITS/ML SYR SUBCUT SCH (22:00)
[2019-10-02 00:30] VITALS: BP 165/107
[2019-10-02 00:30] LABS: CREATINE KINASE MB FRACTION 3.8 ng/mL (0.5-3.6)
[2019-10-02] MEDS: CLONIDINE 0.1MG TABLET PO PRN (01:02)
[2019-10-02 04:00] VITALS: BP 147/87
[2019-10-02] MEDS: INSULIN LISPRO (HIGH DOSE) 100 UNITS/ML SUBCUT SCH ×4 (07:27→21:49)
[2019-10-02] MEDS: BLOOD SUGAR DIAGNOSTIC STRIP TEST SCH ×4 (07:27→21:38)
[2019-10-02 08:00] VITALS: BP 171/99
[2019-10-02] MEDS ORDERED: ALTEPLASE 2MG/VIAL ITC NR (08:15)
[2019-10-02] MEDS: LOSARTAN POTASSIUM 50 MG TABLET PO SCH (10:15)
[2019-10-02] MEDS: ASPIRIN 81MG EC TABLET PO SCH (10:15)
[2019-10-02] MEDS: METOPROLOL TARTRATE 25MG TABLET PO SCH ×2 (10:15→21:38)
[2019-10-02] MEDS: HEPARIN 5000 UNITS/ML VIAL SUBCUT SCH ×2 (10:16→21:38)
[2019-10-02] MEDS: MINOXIDIL 2.5MG TABLET PO SCH ×2 (10:18→21:38)
[2019-10-02] MEDS: NIFEDIPINE XL 90MG TAB PO SCH (10:18)
[2019-10-02] MEDS: INSULIN GLARGINE UD 100 UNITS/ML SYR SUBCUT SCH ×2 (10:28→22:28)
[2019-10-02 11:35] LABS: BASOPHILS % 0.9 % (0.0-2.0); EOSINOPHILS % 4.2 % (0.0-5.0); HEMATOCRIT. 37.2 % (36.0-48.0); HEMOGLOBIN. 12.1 g/dL (12.0-16.0); LYMPHOCYTES % 21.5 % (20.0-50.0); MEAN CORPUSCULAR HEMOGLOBIN 25.2 pg (28.0-32.0); MEAN CORPUSCULAR VOLUME 77.7 fL (81.0-99.0); MEAN PLATELET VOLUME 9.4 fl (7.4-10.4); MONOCYTES % 12.7 % (2.0-8.0); NEUTROPHILS % 60.7 % (40.0-76.0); PLATELET 183 x1000/uL (130-400); RED BLOOD CELL COUNT 4.78 mill/uL (4.2-5.4); RED CELL DISTRIBUTION WIDTH 20.3 % (11.6-14.6)
[2019-10-02 11:47] LABS: CHLORIDE 106 mEq/L (98-107)
[2019-10-02 11:53] LABS: PHOSPHORUS 2.9 mg/dL (2.5-4.9)
[2019-10-02 11:54] LABS: LDL CHOLESTEROL 156 mg/dL (5-100)
[2019-10-02 11:55] LABS: HDL CHOLESTEROL 70 mg/dL (40-59)
[2019-10-02 11:56] LABS: T4 FREE 0.87 ng/dL (0.76-1.46)
[2019-10-02 12:00] VITALS: BP 136/76
[2019-10-02 16:00] VITALS: BP 121/72
[2019-10-02] MEDS: CEFTRIAXONE 1 G PREMIX 50 ML IV SCH (17:47)
[2019-10-02 20:00] VITALS: BP 134/80
[2019-10-02] MEDS ORDERED: ATORVASTATIN CALCIUM 20MG TABLET PO SCH (21:00)
[2019-10-03] VITALS: BP 135/85
[2019-10-03 04:00] VITALS: BP 113/74
[2019-10-03 06:02] LABS: PHOSPHORUS 3.2 mg/dL (2.5-4.9)
[2019-10-03 06:17] LABS: BASOPHILS % 2.9 % (0.0-2.0); EOSINOPHILS % 5.1 % (0.0-5.0); HEMATOCRIT. 38.5 % (36.0-48.0); HEMOGLOBIN. 12.3 g/dL (12.0-16.0); MEAN CORPUSCULAR HEMOGLOBIN 24.8 pg (28.0-32.0); MEAN CORPUSCULAR VOLUME 78.1 fL (81.0-99.0); MEAN PLATELET VOLUME 10.1 fl (7.4-10.4); MONOCYTES % 10.2 % (2.0-8.0); NEUTROPHILS % 56.8 % (40.0-76.0); PLATELET 239 x1000/uL (130-400); RED BLOOD CELL COUNT 4.93 mill/uL (4.2-5.4); RED CELL DISTRIBUTION WIDTH 20.4 % (11.6-14.6)
[2019-10-03] MEDS: BLOOD SUGAR DIAGNOSTIC STRIP TEST SCH ×4 (06:58→21:24)
[2019-10-03] MEDS: INSULIN LISPRO (HIGH DOSE) 100 UNITS/ML SUBCUT SCH ×4 (07:50→21:39)
[2019-10-03 08:00] VITALS: BP 119/67
[2019-10-03] MEDS: ASPIRIN 81MG EC TABLET PO SCH (08:46)
[2019-10-03] MEDS: HEPARIN 5000 UNITS/ML VIAL SUBCUT SCH ×2 (08:47→21:37)
[2019-10-03] MEDS: NIFEDIPINE XL 90MG TAB PO SCH (08:51)
[2019-10-03] MEDS: MINOXIDIL 2.5MG TABLET PO SCH ×2 (08:51→21:37)
[2019-10-03] MEDS: LOSARTAN POTASSIUM 50 MG TABLET PO SCH (08:51)
[2019-10-03] MEDS: METOPROLOL TARTRATE 25MG TABLET PO SCH ×2 (08:51→21:37)
[2019-10-03] MEDS: INSULIN GLARGINE UD 100 UNITS/ML SYR SUBCUT SCH ×2 (10:07→22:32)
[2019-10-03 12:00] VITALS: BP 122/73
[2019-10-03] MEDS: EZETIMIBE 10MG TABLET PO SCH (13:56)
[2019-10-03 16:00] VITALS: BP 124/73
[2019-10-03] MEDS: CEFTRIAXONE 1 G PREMIX 50 ML IV SCH (18:00)
[2019-10-03 20:00] VITALS: BP 131/75
[2019-10-04] VITALS: BP 143/77
[2019-10-04 04:00] VITALS: BP 123/81
[2019-10-04 06:04] LABS: BASOPHILS % 2.6 % (0.0-2.0); HEMATOCRIT. 37.3 % (36.0-48.0); HEMOGLOBIN. 12.2 g/dL (12.0-16.0); LYMPHOCYTES % 21.9 % (20.0-50.0); MEAN CORPUSCULAR HEMOGLOBIN 25.3 pg (28.0-32.0); MEAN PLATELET VOLUME 9.6 fl (7.4-10.4); MONOCYTES % 8.9 % (2.0-8.0); NEUTROPHILS % 62.6 % (40.0-76.0); PLATELET 268 x1000/uL (130-400); RED BLOOD CELL COUNT 4.85 mill/uL (4.2-5.4); RED CELL DISTRIBUTION WIDTH 20.2 % (11.6-14.6)
[2019-10-04 06:07] LABS: PHOSPHORUS 2.8 mg/dL (2.5-4.9)
[2019-10-04] MEDS: BLOOD SUGAR DIAGNOSTIC STRIP TEST SCH ×4 (07:12→21:28)
[2019-10-04 08:00] VITALS: BP 148/89
[2019-10-04] MEDS: ASPIRIN 81MG EC TABLET PO SCH (09:08)
[2019-10-04] MEDS: LOSARTAN POTASSIUM 50 MG TABLET PO SCH (09:08)
[2019-10-04] MEDS: EZETIMIBE 10MG TABLET PO SCH (09:08)
[2019-10-04] MEDS: NIFEDIPINE XL 90MG TAB PO SCH (09:08)
[2019-10-04] MEDS: METOPROLOL TARTRATE 25MG TABLET PO SCH ×2 (09:11→21:18)
[2019-10-04] MEDS: MINOXIDIL 2.5MG TABLET PO SCH ×2 (09:11→21:18)
[2019-10-04] MEDS: INSULIN LISPRO (HIGH DOSE) 100 UNITS/ML SUBCUT SCH ×4 (09:12→21:42)
[2019-10-04] MEDS: HEPARIN 5000 UNITS/ML VIAL SUBCUT SCH ×2 (09:12→21:22)
[2019-10-04] MEDS: INSULIN GLARGINE UD 100 UNITS/ML SYR SUBCUT SCH ×2 (09:42→21:41)
[2019-10-04 12:00] VITALS: BP 134/73
[2019-10-04 16:00] VITALS: BP 116/69
[2019-10-04] MEDS: CEFTRIAXONE 1 G PREMIX 50 ML IV SCH (18:07)
[2019-10-04 20:00] VITALS: BP 145/81
[2019-10-05] VITALS (8 sets, daily range): BP systolic 118–190; BP diastolic 74–106
[2019-10-05] MEDS: CLONIDINE 0.1MG TABLET PO PRN (04:03)
[2019-10-05 05:50] LABS: PHOSPHORUS 3.7 mg/dL (2.5-4.9)
[2019-10-05] MEDS: BLOOD SUGAR DIAGNOSTIC STRIP TEST SCH ×3 (06:27→17:24)
[2019-10-05 06:47] LABS: BASOPHILS % 3.1 % (0.0-2.0); EOSINOPHILS % 4.8 % (0.0-5.0); HEMOGLOBIN. 12.7 g/dL (12.0-16.0); LYMPHOCYTES % 24.4 % (20.0-50.0); MEAN CORPUSCULAR HEMOGLOBIN 25.3 pg (28.0-32.0); MEAN CORPUSCULAR VOLUME 77.8 fL (81.0-99.0); MEAN PLATELET VOLUME 9.4 fl (7.4-10.4); MONOCYTES % 13.6 % (2.0-8.0); NEUTROPHILS % 54.1 % (40.0-76.0); PLATELET 283 x1000/uL (130-400); RED BLOOD CELL COUNT 5.02 mill/uL (4.2-5.4); RED CELL DISTRIBUTION WIDTH 20.2 % (11.6-14.6)
[2019-10-05] MEDS: INSULIN LISPRO (HIGH DOSE) 100 UNITS/ML SUBCUT SCH ×3 (07:50→17:47)
[2019-10-05] MEDS: ASPIRIN 81MG EC TABLET PO SCH (08:40)
[2019-10-05] MEDS: METOPROLOL TARTRATE 25MG TABLET PO SCH (08:41)
[2019-10-05] MEDS: MINOXIDIL 2.5MG TABLET PO SCH (08:41)
[2019-10-05] MEDS: EZETIMIBE 10MG TABLET PO SCH (08:41)
[2019-10-05] MEDS: NIFEDIPINE XL 90MG TAB PO SCH (08:41)
[2019-10-05] MEDS: LOSARTAN POTASSIUM 50 MG TABLET PO SCH (08:42)
[2019-10-05] MEDS: HEPARIN 5000 UNITS/ML VIAL SUBCUT SCH (08:42)
[2019-10-05] MEDS: INSULIN GLARGINE UD 100 UNITS/ML SYR SUBCUT SCH (10:59)
[2019-10-05] MEDS ORDERED: METOPROLOL TARTRATE 25MG TABLET PO NR (13:45)
[2019-10-05] MEDS ORDERED: METO-539 MT (14:52)
[2019-10-05] MEDS: CEFTRIAXONE 1 G PREMIX 50 ML IV SCH (17:54)
[2019-10-05] MEDS ORDERED: HEPARIN SODIUM 1,000 UNIT/1ML VIAL IV SCH (19:00)
[2019-10-05] MEDS ORDERED: METOPROLOL TARTRATE 50MG TABLET PO SCH (21:00)
[2019-10-06] MEDS ORDERED: REGADENOSON 0.4 MG/5 ML IV NR (07:15)
[2019-12-09] MEDS ORDERED: LOSA25TA3 MT (13:37)
[2019-12-09] MEDS ORDERED: CLON0.2T PO (13:37)
[2019-12-09] MEDS ORDERED: METO2.5T14 PO (13:37)
[2019-12-09] MEDS ORDERED: FURO80TA87 MT (13:37)
[2019-12-09] MEDS ORDERED: CEPH250C2 PO (13:37)
[2019-12-09] MEDS ORDERED: METO-539 MT (13:37)
[2019-12-09] MEDS ORDERED: NIFE20CA PO (13:37)
== END 2019-10-05 21:20 | DRG 470 ==
LOC: ER 02:14 → 6WST 05:14 → SUPCPDRO 11:15 → ENRESERV 11:50
PROVIDERS: ADMIT Ophthalmology; ATTEND Ophthalmology
PROC: 5A1D70Z Performance of Urinary Filtration, Intermittent, Less than 6 Hours Per Day (ICD-10-PCS; 2019-10-01)
PROC: 5A1D70Z Performance of Urinary Filtration, Intermittent, Less than 6 Hours Per Day (ICD-10-PCS; 2019-10-02)
PROC: 5A1D70Z Performance of Urinary Filtration, Intermittent, Less than 6 Hours Per Day (ICD-10-PCS; 2019-10-03)
PROC: 5A1D70Z Performance of Urinary Filtration, Intermittent, Less than 6 Hours Per Day (ICD-10-PCS; principal; 2019-10-05)
DX: I12.0 Hypertensive chronic kidney disease with stage 5 chronic kidney disease or end stage renal disease (principal); I47.2 Ventricular tachycardia; E11.21 Type 2 diabetes mellitus with diabetic nephropathy; E87.1 Hypo-osmolality and hyponatremia; L03.116 Cellulitis of left lower limb; E11.65 Type 2 diabetes mellitus with hyperglycemia; N18.6 End stage renal disease; E11.22 Type 2 diabetes mellitus with diabetic chronic kidney disease; I16.0 Hypertensive urgency; F43.20 Adjustment disorder, unspecified; E78.5 Hyperlipidemia, unspecified; D64.9 Anemia, unspecified; E66.9 Obesity, unspecified; F17.200 Nicotine dependence, unspecified, uncomplicated; I44.4 Left anterior fascicular block; F32.9 Major depressive disorder, single episode, unspecified; R26.9 Unspecified abnormalities of gait and mobility; Z91.15 Patient's noncompliance with renal dialysis; Z99.2 Dependence on renal dialysis; Z87.441 Personal history of nephrotic syndrome; Z91.14 Patient's other noncompliance with medication regimen; Z87.898 Personal history of other specified conditions; Z79.899 Other long term (current) drug therapy; Z88.8 Allergy status to other drugs, medicaments and biological substances; Z84.1 Family history of disorders of kidney and ureter; Z68.30 Body mass index [BMI] 30.0-30.9, adult; Z03.818 Encounter for observation for suspected exposure to other biological agents ruled out
CPT/HCPCS: 36415; 36600; 71045; 80048; 80053; 80061; 80305; 80320; 81003; 82375; 82550; 82553; 82805; 82962; 83735; 83880; 84100; 84439; 84443; 84484; 85025; 93005; 93970; 97162; 97530; 99285; J0696; J1644; J1815; J2997; J3490; G0480; U0003-CS

== ENCOUNTER 2020-03-04 15:39 | Inpatient (IN) | payer MEDICAID ==
[~2020-03-04] VITALS: Ht 162.6 cm; Wt 71.2 kg
[~2020-03-04 15:39] MED LIST changes: +ASPI-1160 PO; -CLON0.2T MT; +CLON0.2T PO; +CLON0.3T PO; +CLOP75TA15 PO; +FAMO-135 MT; -FURO80TA87 MT; +GLIP5TAB12 PO; -HYDR-4001 MT; +LOSA100T3 PO; -LOSA25TA3 MT; -METO-539 MT; +METO-539 PO; -METO2.5T14 PO; +MINO2.5T19 PO; +NIFE90TA60 PO; +SEVE800T8 PO; +TRAM50TA3 MT
[2020-03-04] MEDS ORDERED: ONDANSETRON HCL 4MG/2ML INJ IV STA (16:26)
[2020-03-04 17:02] LABS: HEMATOCRIT. 40.7 % (36.0-48.0); HEMOGLOBIN. 13.1 g/dL (12.0-16.0); MEAN CORPUSCULAR VOLUME 80.9 fL (81.0-99.0); MEAN PLATELET VOLUME 8.3 fl (7.4-10.4); PLATELET 366 x1000/uL (130-400); RED BLOOD CELL COUNT 5.03 mill/uL (4.2-5.4); RED CELL DISTRIBUTION WIDTH 15.3 % (11.6-14.6)
[2020-03-04 17:03] LABS: CHLORIDE 107 mEq/L (98-107)
[2020-03-04 17:08] LABS: INR 1.2; PROTHROMBIN TIME 12.3 sec (9.6-11.0)
[2020-03-04] MEDS ORDERED: HYDRALAZINE HCL 100MG TABLET PO ONE (17:15)
[2020-03-04] MEDS ORDERED: HYDRALAZINE 20MG/ML VIAL IV ONE (17:15)
[2020-03-04] MEDS ORDERED: LABETALOL HCL 100MG TABLET PO ONE (17:30)
[2020-03-04 18:05] LABS: PLATELET ESTIMATE NORMAL
[2020-03-04] MEDS ORDERED: PANTOPRAZOLE SODIUM 40 MG/VIAL IV ONE (18:15)
[2020-03-04] MEDS ORDERED: ONDANSETRON HCL 4MG/2ML INJ IV NR (21:15)
[2020-03-04] MEDS: CLONIDINE 0.3MG TABLET PO SCH (21:38)
[2020-03-04 23:20] VITALS: BP 164/81
[2020-03-05] VITALS (12 sets, daily range): BP systolic 110–190; BP diastolic 65–103
[2020-03-05] MEDS ORDERED: INSLIS SUBCUT (00:38)
[2020-03-05] MEDS ORDERED: ONDANSETRON HCL 4MG/2ML INJ IV PRN (00:45)
[2020-03-05] MEDS ORDERED: DIPHENHYDRAMINE 50MG/ML VIAL IV PRN (00:45)
[2020-03-05] MEDS ORDERED: DEXTROSE 50% WATER 50ML SYRINGE IV PRN (00:45)
[2020-03-05 07:56] LABS: HEMATOCRIT. 32.2 % (36.0-48.0); HEMOGLOBIN. 10.4 g/dL (12.0-16.0); MEAN CORPUSCULAR HEMOGLOBIN 26.1 pg (28.0-32.0); MEAN CORPUSCULAR VOLUME 80.6 fL (81.0-99.0); MEAN PLATELET VOLUME 7.8 fl (7.4-10.4); PLATELET 294 x1000/uL (130-400); RED BLOOD CELL COUNT 3.99 mill/uL (4.2-5.4); RED CELL DISTRIBUTION WIDTH 15.4 % (11.6-14.6)
[2020-03-05] MEDS: INSULIN LISPRO 100 UNITS/ML SUBCUT SCH ×4 (08:00→20:44)
[2020-03-05] MEDS: BLOOD SUGAR DIAGNOSTIC STRIP TEST SCH ×4 (08:03→20:31)
[2020-03-05] MEDS: SEVELAMER CARBONATE 800 MG TABLET PO SCH ×3 (08:27→17:20)
[2020-03-05] MEDS: METOPROLOL TARTRATE 50MG TABLET PO SCH ×2 (08:27→20:31)
[2020-03-05] MEDS: CLONIDINE 0.3MG TABLET PO SCH ×2 (08:27→21:50)
[2020-03-05] MEDS: ASPIRIN 81MG TABLET PO SCH (08:28)
[2020-03-05] MEDS: MINOXIDIL 2.5MG TABLET PO SCH ×2 (08:28→20:31)
[2020-03-05] MEDS: FAMOTIDINE 20MG TABLET PO SCH (08:28)
[2020-03-05] MEDS: FOLIC ACID/VITAMIN B COMP W-C TABLET PO SCH (08:28)
[2020-03-05] MEDS ORDERED: PANTOPRAZOLE SODIUM 40 MG/VIAL IV SCH (09:00)
[2020-03-05] MEDS: METOCLOPRAMIDE HCL 10MG/2ML VIAL IV SCH ×5 (12:00→23:38)
[2020-03-05] MEDS: LOSARTAN POTASSIUM 100 MG TABLET PO SCH (12:13)
[2020-03-05] MEDS: NIFEDIPINE XL 90MG TAB PO SCH (12:15)
[2020-03-05] MEDS: CEFEPIME 1,000 MG in DEXTROSE 5% WATER 50 ML IV SCH (12:31)
[2020-03-05 13:45] LABS: PLATELET ESTIMATE NORMAL
[2020-03-05] MEDS: ENOXAPARIN 30MG/0.3ML SYR SUBCUT SCH (17:19)
[2020-03-06] VITALS (13 sets, daily range): BP systolic 105–160; BP diastolic 62–91
[2020-03-06] MEDS: METOCLOPRAMIDE HCL 10MG/2ML VIAL IV SCH ×5 (05:13→23:48)
[2020-03-06] MEDS: INSULIN LISPRO 100 UNITS/ML SUBCUT SCH ×4 (08:00→21:00)
[2020-03-06] MEDS: SEVELAMER CARBONATE 800 MG TABLET PO SCH ×3 (08:11→17:25)
[2020-03-06] MEDS: FOLIC ACID/VITAMIN B COMP W-C TABLET PO SCH (08:11)
[2020-03-06] MEDS: ASPIRIN 81MG TABLET PO SCH (08:11)
[2020-03-06] MEDS: FAMOTIDINE 20MG TABLET PO SCH (08:11)
[2020-03-06 08:12] LABS: BASOPHILS % 2.3 % (0.0-2.0); HEMATOCRIT. 30.2 % (36.0-48.0); HEMOGLOBIN. 9.8 g/dL (12.0-16.0); LYMPHOCYTES % 19.8 % (20.0-50.0); MEAN CORPUSCULAR HEMOGLOBIN 26.2 pg (28.0-32.0); MEAN CORPUSCULAR VOLUME 80.7 fL (81.0-99.0); MEAN PLATELET VOLUME 8.3 fl (7.4-10.4); MONOCYTES % 11.6 % (2.0-8.0); NEUTROPHILS % 65.3 % (40.0-76.0); PLATELET 264 x1000/uL (130-400); RED BLOOD CELL COUNT 3.74 mill/uL (4.2-5.4); RED CELL DISTRIBUTION WIDTH 15.3 % (11.6-14.6)
[2020-03-06] MEDS: PANTOPRAZOLE SODIUM 40 MG/VIAL IV SCH (08:12)
[2020-03-06] MEDS: BLOOD SUGAR DIAGNOSTIC STRIP TEST SCH ×4 (08:12→20:50)
[2020-03-06 08:22] LABS: CHLORIDE 97 mEq/L (98-107)
[2020-03-06] MEDS: CLONIDINE 0.3MG TABLET PO SCH ×2 (08:31→20:48)
[2020-03-06] MEDS: LOSARTAN POTASSIUM 100 MG TABLET PO SCH (08:32)
[2020-03-06] MEDS: METOPROLOL TARTRATE 50MG TABLET PO SCH ×2 (08:32→20:48)
[2020-03-06] MEDS: MINOXIDIL 2.5MG TABLET PO SCH ×2 (08:32→20:47)
[2020-03-06] MEDS: NIFEDIPINE XL 90MG TAB PO SCH (08:33)
[2020-03-06] MEDS: CEFEPIME 1,000 MG in DEXTROSE 5% WATER 50 ML IV SCH (09:28)
[2020-03-06] MEDS: ENOXAPARIN 30MG/0.3ML SYR SUBCUT SCH (17:13)
[2020-03-06] MEDS: ACETAMINOPHEN 325MG TABLET PO PRN (20:47)
[2020-03-07] VITALS (8 sets, daily range): BP systolic 86–153; BP diastolic 43–86
[2020-03-07] MEDS: METOCLOPRAMIDE HCL 10MG/2ML VIAL IV SCH ×4 (05:52→23:37)
[2020-03-07] MEDS: ACETAMINOPHEN 325MG TABLET PO PRN (05:52)
[2020-03-07 06:59] LABS: HEMATOCRIT. 28.7 % (36.0-48.0); HEMOGLOBIN. 9.3 g/dL (12.0-16.0); MEAN CORPUSCULAR HEMOGLOBIN 26.3 pg (28.0-32.0); MEAN CORPUSCULAR VOLUME 81.5 fL (81.0-99.0); MEAN PLATELET VOLUME 8.5 fl (7.4-10.4); PLATELET 214 x1000/uL (130-400); RED BLOOD CELL COUNT 3.52 mill/uL (4.2-5.4); RED CELL DISTRIBUTION WIDTH 14.9 % (11.6-14.6)
[2020-03-07] MEDS: BLOOD SUGAR DIAGNOSTIC STRIP TEST SCH ×4 (07:40→21:00)
[2020-03-07] MEDS: CLONIDINE 0.3MG TABLET PO SCH ×2 (08:23→21:00)
[2020-03-07] MEDS: FAMOTIDINE 20MG TABLET PO SCH (08:23)
[2020-03-07] MEDS: FOLIC ACID/VITAMIN B COMP W-C TABLET PO SCH (08:23)
[2020-03-07] MEDS: PANTOPRAZOLE SODIUM 40 MG/VIAL IV SCH (08:23)
[2020-03-07] MEDS: LOSARTAN POTASSIUM 100 MG TABLET PO SCH (08:23)
[2020-03-07] MEDS: ASPIRIN 81MG TABLET PO SCH (08:23)
[2020-03-07] MEDS: SEVELAMER CARBONATE 800 MG TABLET PO SCH ×3 (08:23→18:05)
[2020-03-07] MEDS: NIFEDIPINE XL 90MG TAB PO SCH (08:24)
[2020-03-07] MEDS: METOPROLOL TARTRATE 50MG TABLET PO SCH ×2 (08:24→21:00)
[2020-03-07] MEDS: MINOXIDIL 2.5MG TABLET PO SCH ×2 (08:24→21:00)
[2020-03-07] MEDS: INSULIN LISPRO 100 UNITS/ML SUBCUT SCH ×4 (08:26→21:26)
[2020-03-07] MEDS: CEFEPIME 1,000 MG in DEXTROSE 5% WATER 50 ML IV SCH (09:04)
[2020-03-07] MEDS: ENOXAPARIN 30MG/0.3ML SYR SUBCUT SCH (18:05)
[2020-03-07 20:56] LABS: PLATELET ESTIMATE NORMAL
[2020-03-08] VITALS: BP 155/82
[2020-03-08] MEDS: METOCLOPRAMIDE HCL 10MG/2ML VIAL IV SCH (05:41)
[2020-03-08] MEDS: BLOOD SUGAR DIAGNOSTIC STRIP TEST SCH (07:43)
[2020-03-08 08:00] VITALS: BP 135/70
[2020-03-08] MEDS: SEVELAMER CARBONATE 800 MG TABLET PO SCH ×2 (08:00→08:26)
[2020-03-08] MEDS: INSULIN LISPRO 100 UNITS/ML SUBCUT SCH (08:00)
[2020-03-08] MEDS: LOSARTAN POTASSIUM 100 MG TABLET PO SCH ×2 (08:27→08:37)
[2020-03-08] MEDS: MINOXIDIL 2.5MG TABLET PO SCH ×2 (08:27→08:37)
[2020-03-08] MEDS: NIFEDIPINE XL 90MG TAB PO SCH ×2 (08:27→08:38)
[2020-03-08] MEDS: ASPIRIN 81MG TABLET PO SCH ×2 (08:27→08:37)
[2020-03-08] MEDS: FOLIC ACID/VITAMIN B COMP W-C TABLET PO SCH ×2 (08:27→08:37)
[2020-03-08] MEDS: FAMOTIDINE 20MG TABLET PO SCH ×2 (08:28→08:37)
[2020-03-08] MEDS: CLONIDINE 0.3MG TABLET PO SCH ×2 (08:28→08:37)
[2020-03-08] MEDS: METOPROLOL TARTRATE 50MG TABLET PO SCH ×2 (08:28→08:37)
== END 2020-03-08 09:26 | disposition home health service (06) | DRG 199 ==
LOC: ER 15:39 → 5EST 18:14 → EDBEDREQ 18:16 → EDBEDREQSVC 18:16 → ENRESERV 21:29 → 5EST 03-05 21:30
PROVIDERS: ADMIT Ophthalmology; ATTEND Ophthalmology
PROC: 5A1D70Z Performance of Urinary Filtration, Intermittent, Less than 6 Hours Per Day (ICD-10-PCS; principal; 2020-03-05)
PROC: 5A1D70Z Performance of Urinary Filtration, Intermittent, Less than 6 Hours Per Day (ICD-10-PCS; 2020-03-06)
DX: I16.0 Hypertensive urgency (principal); K31.84 Gastroparesis; D64.9 Anemia, unspecified; D72.819 Decreased white blood cell count, unspecified; E46 Unspecified protein-calorie malnutrition; N18.6 End stage renal disease; E11.43 Type 2 diabetes mellitus with diabetic autonomic (poly)neuropathy; R16.2 Hepatomegaly with splenomegaly, not elsewhere classified; E11.21 Type 2 diabetes mellitus with diabetic nephropathy; I12.0 Hypertensive chronic kidney disease with stage 5 chronic kidney disease or end stage renal disease; E11.22 Type 2 diabetes mellitus with diabetic chronic kidney disease; E11.51 Type 2 diabetes mellitus with diabetic peripheral angiopathy without gangrene; Z91.19 Patient's noncompliance with other medical treatment and regimen; Z99.2 Dependence on renal dialysis; Z88.1 Allergy status to other antibiotic agents; Z88.8 Allergy status to other drugs, medicaments and biological substances; Z79.82 Long term (current) use of aspirin; Z79.899 Other long term (current) drug therapy; Z68.27 Body mass index [BMI] 27.0-27.9, adult
CPT/HCPCS: 36415; 71045; 80048; 80053; 82962; 83036; 83735; 84100; 85025; 86850; 86900; 96374; 99285; C9113; J0360; J0692; J1650; J1815; J2405; J2765; J7060

== ENCOUNTER 2020-06-13 12:40 | Emergency (ER) | payer MEDICAID ==
[~2020-06-13] VITALS: Ht 170.2 cm; Wt 70.0 kg
[~2020-06-13 12:40] MED LIST changes: -CLON0.2T PO; -CLOP75TA15 PO; -FAMO-135 MT; -GLIP5TAB12 PO; +INSLIS SUBCUT; -LOSA100T3 PO; -NIFE20CA PO; -NIFE90TA60 PO; -TRAM50TA3 MT
[2020-06-13 14:01] LABS: BASOPHILS % 2.4 % (0.0-2.0); EOSINOPHILS % 5.3 % (0.0-5.0); HEMATOCRIT. 42.8 % (36.0-48.0); HEMOGLOBIN. 13.7 g/dL (12.0-16.0); LYMPHOCYTES % 28.1 % (20.0-50.0); MEAN CORPUSCULAR HEMOGLOBIN 25.9 pg (28.0-32.0); MEAN CORPUSCULAR VOLUME 80.9 fL (81.0-99.0); MEAN PLATELET VOLUME 8.4 fl (7.4-10.4); MONOCYTES % 7.6 % (2.0-8.0); NEUTROPHILS % 56.6 % (40.0-76.0); PLATELET 473 x1000/uL (130-400); RED BLOOD CELL COUNT 5.29 mill/uL (4.2-5.4); RED CELL DISTRIBUTION WIDTH 18.8 % (11.6-14.6)
[2020-06-13 14:09] LABS: CHLORIDE 95 mEq/L (98-107)
[2020-06-13 14:16] LABS: INR 1.2; PROTHROMBIN TIME 12.3 sec (9.6-11.0)
[2020-06-13] MEDS ORDERED: DEXTROSE 50% WATER 50ML SYRINGE IV ONE (14:45)
[2020-06-13] MEDS ORDERED: INSULIN REGULAR (HUMULIN R) 300UNITS/3ML VIAL IV ONE (14:45)
[2020-06-13] MEDS ORDERED: HYDRALAZINE 20MG/ML VIAL IV ONE (16:45)
[2020-06-13 19:00] VITALS: BP 172/90
== END 2020-06-13 19:55 | disposition short-term general hospital (02) ==
LOC: ER 12:40 → CANBEDREQ 06-14 08:51
DX: E87.5 Hyperkalemia (principal); E87.70 Fluid overload, unspecified; Z91.15 Patient's noncompliance with renal dialysis; I12.0 Hypertensive chronic kidney disease with stage 5 chronic kidney disease or end stage renal disease; E11.22 Type 2 diabetes mellitus with diabetic chronic kidney disease; N18.6 End stage renal disease; R06.02 Shortness of breath; Z99.2 Dependence on renal dialysis; Z79.4 Long term (current) use of insulin; Z79.899 Other long term (current) drug therapy; Z86.73 Personal history of transient ischemic attack (TIA), and cerebral infarction without residual deficits; Z98.890 Other specified postprocedural states; Z88.8 Allergy status to other drugs, medicaments and biological substances
CPT/HCPCS: 36415; 71045; 80053; 85025; 85610; 93005; 96374; 96375; 99285; J0360; J1815; Z7610

== ENCOUNTER 2020-10-24 22:05 | Inpatient (IN) | payer MEDICAID ==
[~2020-10-24] VITALS: Ht 165.1 cm; Wt 93.9 kg
[2020-10-24] MEDS ORDERED: CEFTRIAXONE 1 G PREMIX 50 ML IV ONE (22:15)
[2020-10-24 22:44] LABS: HEMATOCRIT. 32.4 % (36.0-48.0); HEMOGLOBIN. 10.6 g/dL (12.0-16.0); MEAN CORPUSCULAR HEMOGLOBIN 27.4 pg (28.0-32.0); MEAN PLATELET VOLUME 7.8 fl (7.4-10.4); PLATELET 703 x1000/uL (130-400); RED BLOOD CELL COUNT 3.85 mill/uL (4.2-5.4); RED CELL DISTRIBUTION WIDTH 14.8 % (11.6-14.6)
[2020-10-24 22:54] LABS: CHLORIDE 100 mEq/L (98-107)
[2020-10-25] MEDS ORDERED: ACETAMINOPHEN 325MG TABLET PO NR (03:15)
[2020-10-25 04:52] LABS: PLATELET ESTIMATE INCREASED
[2020-10-25 07:04] LABS: HEPATITIS B SURFACE ANTIGEN NEGATIVE
[2020-10-25 07:34] LABS: HEPATITIS A AB IGM NEGATIVE (NEGATIVE)
[2020-10-25] MEDS ORDERED: DEXTROSE 50% WATER 50ML SYRINGE IV PRN (09:00)
[2020-10-25] MEDS: INSULIN LISPRO 100 UNITS/ML SUBCUT SCH ×4 (09:00→21:00)
[2020-10-25] MEDS: BLOOD SUGAR DIAGNOSTIC STRIP TEST SCH ×4 (09:22→21:48)
[2020-10-25] MEDS: METOCLOPRAMIDE HCL 5MG TABLET PO SCH ×4 (09:31→21:00)
[2020-10-25] MEDS: NIFEDIPINE XL 30MG TAB PO SCH ×2 (09:32→21:00)
[2020-10-25] MEDS ORDERED: INSULIN GLARGINE UD 100 UNITS/ML SYR SUBCUT SCH (10:00)
[2020-10-25] MEDS: FOLIC ACID/VITAMIN B COMP W-C TABLET PO SCH (11:21)
[2020-10-25 12:00] VITALS: BP 207/108
[2020-10-25 13:00] VITALS: BP 98/59
[2020-10-25] MEDS: CLONIDINE 0.1MG TABLET PO SCH ×2 (15:29→21:49)
[2020-10-25] MEDS: ACETAMINOPHEN 325MG TABLET PO PRN (15:30)
[2020-10-25 16:00] VITALS: BP 166/88
[2020-10-25] MEDS: ENOXAPARIN 40MG/0.4ML SYR SUBCUT SCH (19:26)
[2020-10-25 20:00] VITALS: BP 144/76
[2020-10-25] MEDS ORDERED: HEPARIN SODIUM 1,000 UNIT/1ML VIAL IV NR (22:30)
[2020-10-26] VITALS: BP 121/61
[2020-10-26] MEDS: METOCLOPRAMIDE HCL 5MG TABLET PO SCH ×4 (06:49→20:00)
[2020-10-26] MEDS: CLONIDINE 0.1MG TABLET PO SCH ×3 (06:54→21:48)
[2020-10-26] MEDS: BLOOD SUGAR DIAGNOSTIC STRIP TEST SCH ×4 (06:54→20:28)
[2020-10-26] MEDS: INSULIN LISPRO 100 UNITS/ML SUBCUT SCH ×4 (07:40→20:27)
[2020-10-26 08:00] VITALS: BP 137/82
[2020-10-26 09:40] LABS: BASOPHILS % 3.9 % (0.0-2.0); HEMATOCRIT. 30.4 % (36.0-48.0); HEMOGLOBIN. 9.8 g/dL (12.0-16.0); MEAN CORPUSCULAR HEMOGLOBIN 27.3 pg (28.0-32.0); MEAN CORPUSCULAR VOLUME 84.7 fL (81.0-99.0); MEAN PLATELET VOLUME 7.8 fl (7.4-10.4); MONOCYTES % 11.2 % (2.0-8.0); NEUTROPHILS % 65.9 % (40.0-76.0); PLATELET 556 x1000/uL (130-400); RED BLOOD CELL COUNT 3.58 mill/uL (4.2-5.4); RED CELL DISTRIBUTION WIDTH 14.6 % (11.6-14.6)
[2020-10-26 09:56] LABS: PHOSPHORUS 5.2 mg/dL (2.5-4.9)
[2020-10-26] MEDS: FOLIC ACID/VITAMIN B COMP W-C TABLET PO SCH (10:28)
[2020-10-26 12:00] VITALS: BP 163/89
[2020-10-26] MEDS ORDERED: IPRATROPIUM/ALBUTEROL 0.5-3(2.5)MG/3ML NEB HHN PRN (15:15)
[2020-10-26 16:00] VITALS: BP 141/82
[2020-10-26] MEDS: ACETAMINOPHEN 325MG TABLET PO PRN (16:44)
[2020-10-26] MEDS: ENOXAPARIN 40MG/0.4ML SYR SUBCUT SCH (18:00)
[2020-10-26 20:00] VITALS: BP 101/56
[2020-10-26] MEDS: ONDANSETRON HCL 4MG/2ML INJ IV PRN (21:19)
[2020-10-26] MEDS: LORAZEPAM 2MG/ML CPJ IV PRN (21:20)
[2020-10-27] VITALS: BP 128/76
[2020-10-27 04:00] VITALS: BP 131/76
[2020-10-27] MEDS: METOCLOPRAMIDE HCL 5MG TABLET PO SCH ×2 (05:17→12:38)
[2020-10-27] MEDS: CLONIDINE 0.1MG TABLET PO SCH ×2 (05:17→20:15)
[2020-10-27] MEDS: BLOOD SUGAR DIAGNOSTIC STRIP TEST SCH ×4 (05:38→20:17)
[2020-10-27] MEDS: INSULIN LISPRO 100 UNITS/ML SUBCUT SCH ×4 (05:38→20:16)
[2020-10-27 07:28] LABS: BASOPHILS % 1.3 % (0.0-2.0); EOSINOPHILS % 0.2 % (0.0-5.0); HEMATOCRIT. 33.7 % (36.0-48.0); HEMOGLOBIN. 10.5 g/dL (12.0-16.0); LYMPHOCYTES % 12.6 % (20.0-50.0); MEAN CORPUSCULAR HEMOGLOBIN 27.2 pg (28.0-32.0); MEAN PLATELET VOLUME 8.2 fl (7.4-10.4); MONOCYTES % 11.5 % (2.0-8.0); NEUTROPHILS % 74.4 % (40.0-76.0); PLATELET 572 x1000/uL (130-400); RED BLOOD CELL COUNT 3.87 mill/uL (4.2-5.4); RED CELL DISTRIBUTION WIDTH 14.8 % (11.6-14.6)
[2020-10-27 08:00] VITALS: BP 103/99
[2020-10-27 08:22] LABS: PHOSPHORUS 5.4 mg/dL (2.5-4.9)
[2020-10-27] MEDS: ONDANSETRON HCL 4MG/2ML INJ IV PRN ×2 (09:50→23:22)
[2020-10-27] MEDS: FOLIC ACID/VITAMIN B COMP W-C TABLET PO SCH (09:50)
[2020-10-27 12:00] VITALS: BP 100/61
[2020-10-27] MEDS: METOCLOPRAMIDE HCL 10MG/2ML VIAL IV SCH ×3 (14:10→20:16)
[2020-10-27 16:00] VITALS: BP_SYST 134; BP_SYST 135; BP_DIAS 70; BP_DIAS 71
[2020-10-27] MEDS: INS NPH/REG HM 70-30 100 UNITS/ML 10ML VIAL (HUMULIN 70-30) SUBCUT SCH (16:45)
[2020-10-27] MEDS: ENOXAPARIN 40MG/0.4ML SYR SUBCUT SCH (18:33)
[2020-10-27 20:00] VITALS: BP 106/60
[2020-10-28] VITALS: BP 112/60
[2020-10-28] MEDS: LORAZEPAM 2MG/ML CPJ IV PRN (00:58)
[2020-10-28 04:00] VITALS: BP 137/80
[2020-10-28] MEDS: BLOOD SUGAR DIAGNOSTIC STRIP TEST SCH ×4 (06:09→20:04)
[2020-10-28] MEDS: METOCLOPRAMIDE HCL 10MG/2ML VIAL IV SCH ×4 (06:09→20:14)
[2020-10-28] MEDS: INSULIN LISPRO 100 UNITS/ML SUBCUT SCH ×4 (06:11→20:15)
[2020-10-28 08:28] VITALS: BP 100/54
[2020-10-28] MEDS: FOLIC ACID/VITAMIN B COMP W-C TABLET PO SCH (08:59)
[2020-10-28] MEDS: CLONIDINE 0.1MG TABLET PO SCH ×2 (09:00→20:15)
[2020-10-28] MEDS: ONDANSETRON HCL 4MG/2ML INJ IV PRN ×2 (09:03→17:21)
[2020-10-28] MEDS: INS NPH/REG HM 70-30 100 UNITS/ML 10ML VIAL (HUMULIN 70-30) SUBCUT SCH (09:05)
[2020-10-28 12:04] VITALS: BP 195/112
[2020-10-28] MEDS ORDERED: ALPRAZOLAM 0.25 MG TABLET PO PRN (14:00)
[2020-10-28 15:31] LABS: BASOPHILS % 0.9 % (0.0-2.0); EOSINOPHILS % 0.1 % (0.0-5.0); HEMATOCRIT. 36.6 % (36.0-48.0); LYMPHOCYTES % 11.3 % (20.0-50.0); MEAN CORPUSCULAR HEMOGLOBIN 27.7 pg (28.0-32.0); MEAN CORPUSCULAR VOLUME 84.7 fL (81.0-99.0); MEAN PLATELET VOLUME 8.1 fl (7.4-10.4); MONOCYTES % 8.7 % (2.0-8.0); PLATELET 655 x1000/uL (130-400); RED BLOOD CELL COUNT 4.33 mill/uL (4.2-5.4); RED CELL DISTRIBUTION WIDTH 15.1 % (11.6-14.6)
[2020-10-28 16:03] VITALS: BP 180/97
[2020-10-28] MEDS: ENOXAPARIN 40MG/0.4ML SYR SUBCUT SCH (17:21)
[2020-10-28 20:00] VITALS: BP 161/83
[2020-10-29] VITALS: BP 184/102
[2020-10-29] MEDS: ONDANSETRON HCL 4MG/2ML INJ IV PRN ×2 (02:23→09:11)
[2020-10-29 04:00] VITALS: BP 168/77
[2020-10-29] MEDS: BLOOD SUGAR DIAGNOSTIC STRIP TEST SCH ×4 (06:17→21:37)
[2020-10-29] MEDS: METOCLOPRAMIDE HCL 10MG/2ML VIAL IV SCH ×4 (06:21→21:16)
[2020-10-29] MEDS: INSULIN LISPRO 100 UNITS/ML SUBCUT SCH ×4 (06:47→21:33)
[2020-10-29 08:00] VITALS: BP 193/106
[2020-10-29] MEDS ORDERED: CLONIDINE 0.1MG TABLET PO PRN (08:15)
[2020-10-29] MEDS: INS NPH/REG HM 70-30 100 UNITS/ML 10ML VIAL (HUMULIN 70-30) SUBCUT SCH (09:00)
[2020-10-29] MEDS: CLONIDINE 0.1MG TABLET PO SCH (09:11)
[2020-10-29] MEDS: FOLIC ACID/VITAMIN B COMP W-C TABLET PO SCH (09:11)
[2020-10-29] MEDS ORDERED: MINOXIDIL 2.5MG TABLET PO SCH (10:45)
[2020-10-29] MEDS ORDERED: HYDRALAZINE 20MG/ML VIAL IV ONE (10:45)
[2020-10-29] MEDS: METOPROLOL TARTRATE 50MG TABLET PO SCH ×2 (11:01→21:16)
[2020-10-29 12:00] VITALS: BP 122/69
[2020-10-29] MEDS: CLONIDINE 0.1MG TABLET PO PRN (13:02)
[2020-10-29] MEDS ORDERED: CLONIDINE 0.3MG TABLET PO SCH (15:00)
[2020-10-29] MEDS: CLONIDINE 0.2MG TABLET PO SCH ×2 (15:59→21:17)
[2020-10-29 16:00] VITALS: BP 181/64
[2020-10-29] MEDS: ENOXAPARIN 40MG/0.4ML SYR SUBCUT SCH (17:21)
[2020-10-29] MEDS: NIFEDIPINE XL 30MG TAB PO SCH (17:22)
[2020-10-29 20:00] VITALS: BP 164/98
[2020-10-30] VITALS: BP 106/58
[2020-10-30 04:00] VITALS: BP 112/54
[2020-10-30] MEDS: CLONIDINE 0.2MG TABLET PO SCH (05:56)
[2020-10-30] MEDS: NIFEDIPINE XL 30MG TAB PO SCH ×3 (05:56→17:43)
[2020-10-30] MEDS: METOCLOPRAMIDE HCL 10MG/2ML VIAL IV SCH ×4 (05:57→20:40)
[2020-10-30] MEDS: BLOOD SUGAR DIAGNOSTIC STRIP TEST SCH ×4 (06:30→20:51)
[2020-10-30] MEDS: INSULIN LISPRO 100 UNITS/ML SUBCUT SCH ×4 (06:35→21:06)
[2020-10-30 07:04] LABS: BASOPHILS % 0.4 % (0.0-2.0); EOSINOPHILS % 0.2 % (0.0-5.0); HEMATOCRIT. 32.6 % (36.0-48.0); HEMOGLOBIN. 10.4 g/dL (12.0-16.0); LYMPHOCYTES % 12.5 % (20.0-50.0); MEAN CORPUSCULAR HEMOGLOBIN 27.3 pg (28.0-32.0); MEAN CORPUSCULAR VOLUME 85.7 fL (81.0-99.0); MEAN PLATELET VOLUME 8.3 fl (7.4-10.4); MONOCYTES % 9.9 % (2.0-8.0); PLATELET 640 x1000/uL (130-400); RED BLOOD CELL COUNT 3.81 mill/uL (4.2-5.4); RED CELL DISTRIBUTION WIDTH 15.1 % (11.6-14.6)
[2020-10-30 07:57] LABS: PHOSPHORUS 7.3 mg/dL (2.5-4.9)
[2020-10-30 08:00] VITALS: BP 109/56
[2020-10-30] MEDS: METOPROLOL TARTRATE 50MG TABLET PO SCH ×2 (08:52→20:41)
[2020-10-30] MEDS: INS NPH/REG HM 70-30 100 UNITS/ML 10ML VIAL (HUMULIN 70-30) SUBCUT SCH (08:54)
[2020-10-30] MEDS: FOLIC ACID/VITAMIN B COMP W-C TABLET PO SCH (08:57)
[2020-10-30 12:00] VITALS: BP 138/93
[2020-10-30] MEDS: SEVELAMER CARBONATE 800 MG TABLET PO SCH ×2 (12:39→17:35)
[2020-10-30 16:00] VITALS: BP 171/94
[2020-10-30] MEDS: CLONIDINE 0.1MG TABLET PO SCH ×2 (16:05→21:08)
[2020-10-30] MEDS: ENOXAPARIN 40MG/0.4ML SYR SUBCUT SCH ×2 (17:36→17:42)
[2020-10-30] MEDS ORDERED: DIPHENHYDRAMINE 50MG/ML VIAL IM PRN (19:30)
[2020-10-30] MEDS: LORAZEPAM 2MG/ML CPJ IV PRN (19:41)
[2020-10-30 20:00] VITALS: BP 139/87
[2020-10-30] MEDS: HALOPERIDOL LACTATE 5MG/ML VIAL IM PRN (20:51)
[2020-10-31] VITALS: BP 103/63
[2020-10-31] MEDS: LORAZEPAM 2MG/ML CPJ IV PRN ×2 (01:47→20:44)
[2020-10-31] MEDS: DIPHENHYDRAMINE 50MG/ML VIAL IV PRN (02:45)
[2020-10-31 04:00] VITALS: BP 120/66
[2020-10-31] MEDS: HALOPERIDOL LACTATE 5MG/ML VIAL IM PRN (04:33)
[2020-10-31] MEDS: NIFEDIPINE XL 30MG TAB PO SCH ×2 (05:08→18:00)
[2020-10-31] MEDS: BLOOD SUGAR DIAGNOSTIC STRIP TEST SCH ×4 (05:08→20:48)
[2020-10-31] MEDS: CLONIDINE 0.1MG TABLET PO SCH ×3 (05:08→20:48)
[2020-10-31] MEDS: METOCLOPRAMIDE HCL 10MG/2ML VIAL IV SCH ×4 (05:09→20:47)
[2020-10-31] MEDS: INSULIN LISPRO 100 UNITS/ML SUBCUT SCH ×4 (05:09→20:56)
[2020-10-31 06:33] LABS: EOSINOPHILS % 2.2 % (0.0-5.0); LYMPHOCYTES % 15.5 % (20.0-50.0); MEAN CORPUSCULAR HEMOGLOBIN 28.1 pg (28.0-32.0); MEAN CORPUSCULAR VOLUME 84.4 fL (81.0-99.0); MONOCYTES % 9.3 % (2.0-8.0); PLATELET 575 x1000/uL (130-400); RED CELL DISTRIBUTION WIDTH 14.6 % (11.6-14.6)
[2020-10-31 07:21] LABS: PHOSPHORUS 6.5 mg/dL (2.5-4.9)
[2020-10-31 08:00] VITALS: BP 100/53
[2020-10-31] MEDS: SEVELAMER CARBONATE 800 MG TABLET PO SCH ×3 (09:00→17:20)
[2020-10-31] MEDS: METOPROLOL TARTRATE 50MG TABLET PO SCH ×2 (09:00→20:48)
[2020-10-31] MEDS: FOLIC ACID/VITAMIN B COMP W-C TABLET PO SCH (09:02)
[2020-10-31] MEDS: INS NPH/REG HM 70-30 100 UNITS/ML 10ML VIAL (HUMULIN 70-30) SUBCUT SCH (09:09)
[2020-10-31 12:00] VITALS: BP 128/79
[2020-10-31 16:00] VITALS: BP 160/90
[2020-10-31] MEDS: ENOXAPARIN 40MG/0.4ML SYR SUBCUT SCH (18:00)
[2020-10-31 20:00] VITALS: BP 184/96
[2020-11-01] VITALS: BP 182/112
[2020-11-01] MEDS: CLONIDINE 0.1MG TABLET PO SCH (01:35)
[2020-11-01] MEDS: DIPHENHYDRAMINE 50MG/ML VIAL IV PRN (01:35)
[2020-11-01] MEDS: NIFEDIPINE XL 30MG TAB PO SCH ×2 (05:46→17:37)
[2020-11-01] MEDS: METOCLOPRAMIDE HCL 10MG/2ML VIAL IV SCH (06:03)
[2020-11-01] MEDS: CLONIDINE 0.1MG TABLET PO PRN (06:04)
[2020-11-01 06:39] LABS: BASOPHILS % 0.2 % (0.0-2.0); EOSINOPHILS % 3.2 % (0.0-5.0); HEMATOCRIT. 35.7 % (36.0-48.0); HEMOGLOBIN. 11.7 g/dL (12.0-16.0); LYMPHOCYTES % 13.1 % (20.0-50.0); MEAN CORPUSCULAR HEMOGLOBIN 27.8 pg (28.0-32.0); MEAN CORPUSCULAR VOLUME 84.9 fL (81.0-99.0); MEAN PLATELET VOLUME 8.3 fl (7.4-10.4); MONOCYTES % 8.8 % (2.0-8.0); NEUTROPHILS % 74.7 % (40.0-76.0); PLATELET 601 x1000/uL (130-400); RED BLOOD CELL COUNT 4.21 mill/uL (4.2-5.4); RED CELL DISTRIBUTION WIDTH 14.6 % (11.6-14.6)
[2020-11-01] MEDS: BLOOD SUGAR DIAGNOSTIC STRIP TEST SCH ×4 (06:48→21:46)
[2020-11-01 08:00] VITALS: BP 146/104
[2020-11-01] MEDS: INSULIN LISPRO 100 UNITS/ML SUBCUT SCH ×4 (09:21→21:45)
[2020-11-01] MEDS: INS NPH/REG HM 70-30 100 UNITS/ML 10ML VIAL (HUMULIN 70-30) SUBCUT SCH (09:22)
[2020-11-01] MEDS: SEVELAMER CARBONATE 800 MG TABLET PO SCH ×3 (09:30→17:37)
[2020-11-01] MEDS: FOLIC ACID/VITAMIN B COMP W-C TABLET PO SCH (09:30)
[2020-11-01] MEDS: CLONIDINE 0.2MG TABLET PO SCH ×2 (09:31→21:42)
[2020-11-01] MEDS: METOPROLOL TARTRATE 50MG TABLET PO SCH ×2 (09:31→21:42)
[2020-11-01 12:00] VITALS: BP 139/87
[2020-11-01] MEDS: METOCLOPRAMIDE HCL 5MG TABLET PO SCH ×3 (12:34→21:42)
[2020-11-01 16:00] VITALS: BP 140/70
[2020-11-01 17:08] VITALS: BP 139/87
[2020-11-01] MEDS: ENOXAPARIN 40MG/0.4ML SYR SUBCUT SCH ×2 (17:39→18:00)
[2020-11-01 20:00] VITALS: BP 158/86
== END 2020-11-01 23:10 | DRG 194 ==
LOC: ER 22:05 → 7WST 10-25 02:53 → EDBEDREQ 10-25 03:05 → EDBEDREQTM 10-25 03:05 → EDBEDREQSVC 10-25 07:50 → ENRESERV 10-25 11:04 → 8WST 10-26 02:57
PROVIDERS: ADMIT Internal Medicine; ATTEND Internal Medicine
DX: I13.2 Hypertensive heart and chronic kidney disease with heart failure and with stage 5 chronic kidney disease, or end stage renal disease (principal); J96.21 Acute and chronic respiratory failure with hypoxia; L89.156 Pressure-induced deep tissue damage of sacral region; D72.10 Eosinophilia, unspecified; E44.0 Moderate protein-calorie malnutrition; E11.21 Type 2 diabetes mellitus with diabetic nephropathy; E11.22 Type 2 diabetes mellitus with diabetic chronic kidney disease; E11.42 Type 2 diabetes mellitus with diabetic polyneuropathy; E87.70 Fluid overload, unspecified; N18.6 End stage renal disease; E11.43 Type 2 diabetes mellitus with diabetic autonomic (poly)neuropathy; D64.9 Anemia, unspecified; E11.51 Type 2 diabetes mellitus with diabetic peripheral angiopathy without gangrene; E87.1 Hypo-osmolality and hyponatremia; K31.84 Gastroparesis; E66.9 Obesity, unspecified; J44.9 Chronic obstructive pulmonary disease, unspecified; E21.3 Hyperparathyroidism, unspecified; G89.29 Other chronic pain; K21.9 Gastro-esophageal reflux disease without esophagitis; M54.5 Low back pain; Z20.822 Contact with and (suspected) exposure to COVID-19; I50.43 Acute on chronic combined systolic (congestive) and diastolic (congestive) heart failure; F41.9 Anxiety disorder, unspecified; N25.81 Secondary hyperparathyroidism of renal origin; Z82.49 Family history of ischemic heart disease and other diseases of the circulatory system; Z86.16 Personal history of COVID-19; Z86.73 Personal history of transient ischemic attack (TIA), and cerebral infarction without residual deficits; Z87.440 Personal history of urinary (tract) infections; Z91.14 Patient's other noncompliance with medication regimen; Z91.15 Patient's noncompliance with renal dialysis; Z91.19 Patient's noncompliance with other medical treatment and regimen; Z98.62 Peripheral vascular angioplasty status; Z99.2 Dependence on renal dialysis; Z68.34 Body mass index [BMI] 34.0-34.9, adult; Z88.8 Allergy status to other drugs, medicaments and biological substances; Z79.82 Long term (current) use of aspirin
CPT/HCPCS: 36415; 71045; 76700; 80048; 80053; 82010; 82040; 82140; 82962; 83605; 83880; 84100; 84134; 84145; 84484; 85025; 86705; 86709; 86803; 87340; 87426; 93005; 94660; 97162; 97165; 99291; C1893; J0696; J1200; J1630; J1644; J1650; J1815; J2060; J2405; J2765; J8597; U0003; U0005